=== PATIENT | female | born 1985 | race Caucasian/White ===

== ENCOUNTER 2016-12-10 13:30 | Outpatient (CLI) | payer OTHER | END 2016-12-10 13:31 | disposition home or self-care (01) | DX: L03.90 Cellulitis, unspecified (principal); L02.91 Cutaneous abscess, unspecified ==

== ENCOUNTER 2016-12-31 16:10 | Outpatient (CLI) | payer OTHER ==
--- NOTE | 2016-12-31 19:19 | XRAY Report ---
THREE-VIEW LEFT ELBOW: 12/31/2016 CLINICAL HISTORY: Left elbow pain. COMPARISON: None. FINDINGS: Soft tissue appears normal. Fat pad is not displaced. No fracture is seen. Joint space appears normal. IMPRESSION: NORMAL LEFT ELBOW. COMMENT: Dr. Mcmahon notified patient's healthcare provider, Rosa M Bhakta, of the normal findings on 12/31/2016 at 4:40 p.m. JOB #: [id number] EXT JOB #:[id number]
== END 2016-12-31 16:11 | disposition home or self-care (01) ==
LOC: DI.S 16:10
PROVIDERS: ATTEND Physician Assistant
DX: M25.522 Pain in left elbow (principal)

== ENCOUNTER 2017-07-02 12:12 | Outpatient (CLI) | payer OTHER | END 2017-07-02 12:13 | disposition short-term general hospital (02) | LOC: EMS 12:12 | PROVIDERS: ATTEND Surgery | DX: N64.4 Mastodynia (principal); V53.5XXA Driver of pick-up truck or van injured in collision with car, pick-up truck or van in traffic accident, initial encounter; Y92.414 Local residential or business street as the place of occurrence of the external cause | CPT/HCPCS: A0170; A0425; A0427 ==

== ENCOUNTER 2017-10-03 21:28 | Outpatient (CLI) | payer OTHER | END 2017-10-03 21:29 | disposition home or self-care (01) | LOC: LAB.R 21:28 | PROVIDERS: ATTEND Physician Assistant | DX: J02.9 Acute pharyngitis, unspecified (principal) | CPT/HCPCS: 87070 ==

== ENCOUNTER 2018-04-02 00:52 | Emergency (ER) | payer OTHER ==
[2018-04-02 01:31] LABS: BILIRUBIN,URINE NEGATIVE (NEGATIVE); GLUCOSE, URINE (UA) NEGATIVE (NEGATIVE); KETONES,URINE (UA) NEGATIVE (NEGATIVE); LEUKOCYTE ESTERASE, URINE TRACE (NEGATIVE); NITRITE,URINE NEGATIVE (NEGATIVE); OCCULT BLOOD,URINE LARGE (NEGATIVE); PROTEIN,URINE TRACE mg/dL (NEGATIVE); UROBILINOGEN,URINE 0.2 (NORMAL) E.U./dL (NORMAL)
[2018-04-02 01:33] LABS: CLARITY,URINE HAZY (CLEAR); HCG UR QUAL NEGATIVE
[2018-04-02 01:37] LABS: BACTERIA,URINE Few /HPF (None Seen); CRYSTALS,URINE 6-10 Calcium Oxalate /LPF; MUCUS,URINE Few Strands; SQUAMOUS EPITHELIAL CELL,UR MOD Squamous (<= Few)
[2018-04-02 03:27] LABS: BASOPHILS % (AUTO) 0.3 %; EOSINOPHILS # (AUTO) 0.1 10^3/uL (0.0-0.7); EOSINOPHILS % (AUTO) 1.5 %; HGB - HEMOGLOBIN 12.9 g/dL (12.0-16.0); LYMPHOCYTES # (AUTO) 1.8 10^3/uL (1.5-3.5); LYMPHOCYTES % (AUTO) 23.4 %; MEAN CORPUSCULAR HEMOGLOBIN 32.4 pg (27.0-31.0); MEAN CORPUSCULAR HGB CONC 35.1 g/dL (32.0-36.0); MEAN CORPUSCULAR VOLUME 92.2 fL (81.0-99.0); MEAN PLATELET VOLUME 7.3 fL (7.9-10.8); MONOCYTES # (AUTO) 0.5 10^3/uL (0.0-1.0); MONOCYTES % (AUTO) 6.7 %; NEUTROPHILS # (AUTO) 5.2 10^3/uL (1.5-6.6); NEUTROPHILS % (AUTO) 68.1 %; PLT - PLATELET COUNT 273 10^3/uL (130-450); RED BLOOD COUNT 3.98 10^6/uL (4.20-5.40); RED CELL DISTRIBUTION WIDTH 14.4 % (12.0-15.0); WHITE BLOOD COUNT 7.6 x10^3/uL (4.8-10.8)
--- NOTE | 2018-04-02 03:29 | Ultrasound Report ---
Procedure Date: 04/02/2018 Accession Number: [id number] / [id number] Procedure: US - Pelvic w/Transvag+Doppler Comp CPT Code: FULL RESULT: EXAM: PELVIC ULTRASOUND EXAM DATE: 04/02/2018 02:50 AM. CLINICAL HISTORY: Vaginal bleeding, pelvic pain. COMPARISON: None. TECHNIQUE: Realtime transabdominal pelvic scan performed to identify the uterus and adnexa and as an overview of other pelvic structures, followed by transvaginal scan to provide greater detail of the uterus and adnexa, with static image documentation. FINDINGS: Uterus: 7.5 x 3.9 x 5.4 cm, volume 82 cc. Anteverted position. Normal overall size and echotexture. Masses: Anterior subserosal fibroid measuring 2.2 x 1.4 x 2.2 cm. Endometrium: [address] Cervix: Unremarkable. Right Ovary: 3.2 x 2.2 x 2.3 cm, volume 8.2 cc. Normal echotexture and blood flow. Left Ovary: 4.0 x 2.6 x 3.0 cm, volume 16.3 cc. Cyst measuring 2.3 x 2.2 x 1.9 cm. Blood flow seen in the ovary. Free Fluid: None. Other: None. IMPRESSION: 1. Anterior 2 cm subserosal fibroid. 2. IUD in place. 3. Mildly prominent left ovary with 2 cm cyst. No torsion seen. RADIA
[2018-04-02 03:44] LABS: ALBUMIN 4.2 g/dL (3.2-5.5); ALBUMIN/GLOBULIN RATIO 1.6 (1.0-2.2); BILIRUBIN,TOTAL 0.6 mg/dL (0.2-1.0); CALCIUM 9.1 mg/dL (8.5-10.3); CREATININE 0.7 mg/dL (0.4-1.0); TOTAL PROTEIN 6.8 g/dL (6.7-8.2)
[2018-04-02 03:47] VITALS: BP 138/100
--- NOTE | 2018-04-02 03:47 | ED Physician Documentation ---
PD HPI FEMALE - Stated complaint Stated Complaint: FEMALE - Chief complaint Chief Complaint: Abd Pain - History obtained from History obtained from: Patient - History of Present Illness Timing - onset: Yesterday Timing - details: Gradual onset, Still present Associated symptoms: Pelvic pain, Urinary frequency Similar symptoms before: Has not had sx before Recently seen: Not recently seen - Additional information Additional information: Patient is a 32 year old female presenting to the emergency department for pelvic pain and vaginal bleeding. Patient states that the symptoms have been going on for the last few days. Review of Systems Ten Systems: 10 systems reviewed and negative Constitutional: denies: Fever, Chills GI: reports: Abdominal Pain : reports: Vaginal bleeding. 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 - Present Medications Home Medications: Ambulatory Orders Medication Instructions Recorded Confirmed No Known Home Medications [No 09/20/14 09/20/14 Known Home Medications] - Allergies Allergies/Adverse Reactions: Allergies Allergy/AdvReac Type Severity Reaction Status Date / Time amoxicillin AdvReac Intermediate Hives Verified 09/20/14 20:42 - Social History Does the pt smoke?: No Smoking Status: Never smoker Does the pt drink ETOH?: No Does the pt have substance abuse?: No - Immunizations Immunizations are current?: Yes - POLST Patient has POLST: No PD ED PE NORMAL - Vitals Vital signs reviewed: Yes - General General: Alert and oriented X 3 - HEENT HEENT: Atraumatic - Cardiac Cardiac: RRR - Respiratory Respiratory: No respiratory distress - Abdomen Abdomen: Soft, Non tender, Non distended - Rectal Rectal: Deferred - Derm Derm: Normal color - Neuro Neuro: Alert and oriented X 3, No motor deficit Eye Opening: Spontaneous Results - Vitals Vitals: Vital Signs - 24 hr 04/02/18 04/02/18 00:59 03:30 Temperature 36.1 C L 36.5 C Heart Rate 111 H 87 Respiratory 16 16 Rate Blood Pressure 142/104 H 138/100 H O2 Saturation 99 100 Oxygen O2 Source Room air - Labs Labs: Laboratory Tests 04/02/18 04/02/18 04/02/18 01:20 03:20 03:20 WBC 7.6 RBC 3.98 L Hgb 12.9 Hct 36.7 L MCV 92.2 MCH 32.4 H MCHC 35.1 RDW 14.4 Plt Count 273 MPV 7.3 L Neut # (Auto) 5.2 Lymph # (Auto) 1.8 Bureau # (Auto) 0.5 Eos # (Auto) 0.1 Baso # (Auto) 0.0 Absolute Nucleated RBC 0.00 Nucleated RBC % 0.0 Sodium 137 Potassium 3.3 L Chloride 103 Carbon Dioxide 27 Anion Gap 7.0 BUN 17 Creatinine 0.7 Estimated GFR (MDRD) 96 Glucose 100 Calcium 9.1 Total Bilirubin 0.6 AST 22 ALT 19 Alkaline Phosphatase 57 Total Protein 6.8 Albumin 4.2 Globulin 2.6 Albumin/Globulin Ratio 1.6 Lipase 25 Urine Color YELLOW Urine Clarity HAZY Urine pH 6.0 Ur Specific [place] 1.025 Urine Protein TRACE Urine Glucose (UA) NEGATIVE Urine Ketones NEGATIVE Urine Occult Blood LARGE H Urine Nitrite NEGATIVE Urine Bilirubin NEGATIVE Urine Urobilinogen 0.2 (NORMAL) Ur Leukocyte Esterase TRACE H Urine RBC 11-25 H Urine WBC 4-5 Ur Squamous Epith Cells MOD Squamous H Urine Crystals 6-10 Calcium Oxalate Urine Bacteria Few Urine Mucus Few Strands Ur Microscopic Review INDICATED Urine Culture Comments NOT INDICATED Urine HCG, Qual NEGATIVE - Rads (name of study) pelvic ultrasound Radiology: Final report received (consistent with uterine fibroids) PD MEDICAL DECISION MAKING - Sepsis Event Vital Signs: Vital Signs - 24 hr 04/02/18 04/02/18 00:59 03:30 Temperature 36.1 C L 36.5 C Heart Rate 111 H 87 Respiratory 16 16 Rate Blood Pressure 142/104 H 138/100 H O2 Saturation 99 100 Oxygen O2 Source Room air Departure - Departure Disposition: 01 Home, Self Care Clinical Impression: Uterine fibroid Condition: Stable Instructions: ED Fibroids Follow-Up: Rosa M Bhakta PA-C [Primary Care Provider] - Comments: Your symptoms today are being caused by fibroids. the firs step is to follow up with your doctor and possible start control. You can take motrin or tylenol as needed for pain. 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 Discharge Date/Time: 04/02/18 03:51
== END 2018-04-02 03:51 | disposition home or self-care (01) ==
LOC: ED 00:52
DX: D25.2 Subserosal leiomyoma of uterus (principal); N83.202 Unspecified ovarian cyst, left side; Z97.5 Presence of (intrauterine) contraceptive device
CPT/HCPCS: 36415; 76830; 76856; 80053; 81001; 81003; 81025; 83690; 85025; 87086; 93975; 99283

== ENCOUNTER 2018-04-09 14:28 | Emergency (ER) | payer OTHER ==
[2018-04-09 15:09] VITALS: BP 139/81
[2018-04-09 15:34] LABS: BASOPHILS % (AUTO) 0.5 %; EOSINOPHILS # (AUTO) 0.1 10^3/uL (0.0-0.7); EOSINOPHILS % (AUTO) 0.9 %; HGB - HEMOGLOBIN 14.1 g/dL (12.0-16.0); LYMPHOCYTES # (AUTO) 2.4 10^3/uL (1.5-3.5); LYMPHOCYTES % (AUTO) 28.1 %; MEAN CORPUSCULAR HEMOGLOBIN 32.2 pg (27.0-31.0); MEAN CORPUSCULAR HGB CONC 35.2 g/dL (32.0-36.0); MEAN CORPUSCULAR VOLUME 91.6 fL (81.0-99.0); MEAN PLATELET VOLUME 7.3 fL (7.9-10.8); MONOCYTES # (AUTO) 0.5 10^3/uL (0.0-1.0); MONOCYTES % (AUTO) 6.5 %; NEUTROPHILS # (AUTO) 5.4 10^3/uL (1.5-6.6); PLT - PLATELET COUNT 438 10^3/uL (130-450); RED BLOOD COUNT 4.38 10^6/uL (4.20-5.40); RED CELL DISTRIBUTION WIDTH 14.2 % (12.0-15.0); WHITE BLOOD COUNT 8.4 x10^3/uL (4.8-10.8)
[2018-04-09 15:48] LABS: ALBUMIN 4.4 g/dL (3.2-5.5); ALBUMIN/GLOBULIN RATIO 1.6 (1.0-2.2); BILIRUBIN,TOTAL 0.7 mg/dL (0.2-1.0); CREATININE 0.8 mg/dL (0.4-1.0); TOTAL PROTEIN 7.2 g/dL (6.7-8.2)
[2018-04-09 17:01] LABS: HCG,QUALITATIVE BLOOD NEGATIVE
== END 2018-04-09 16:24 | disposition left against medical advice (07) ==
LOC: ED 14:28
DX: Z53.21 Procedure and treatment not carried out due to patient leaving prior to being seen by health care provider (principal)
CPT/HCPCS: 36415; 80053; 83690; 84703; 85025

== ENCOUNTER 2018-04-16 15:46 | Emergency (ER) | payer OTHER ==
[2018-04-16] MEDS ORDERED: oxyCODONE/ACET 5/325 Prepack 4 PO STA (16:05)
--- NOTE | 2018-04-16 16:07 | ED Physician Documentation ---
PD HPI ABD PAIN - Stated complaint Stated Complaint: ABD PX - Chief complaint Chief Complaint: Abd Pain - History obtained from History obtained from: Patient - History of Present Illness Timing - onset: Other (32-year-old woman with history of cervical cancer and IUD in place presents with 3 months of vaginal bleeding and now a month worth of pelvic pain all day and every day. She was seen here a few days ago and ultrasound showing fibroids. She was not . She is taking Motrin but there is no significant relief in her pain. She has an appointment with gynecology in a couple of weeks.) Review of Systems Constitutional: denies: Fever, Chills GI: reports: Constipation. 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 - Present Medications Home Medications: Ambulatory Orders Medication Instructions Recorded Confirmed Norgestimate-Ethinyl Estradiol 1 each PO TID #1 packet 04/16/18 [Ortho Tri-Cyclen 28 Tablet] Oxycodone HCl/Acetaminophen 1 - 2 each PO Q6H PRN #20 tablet 04/16/18 [Percocet 5-325 mg Tablet] - Allergies Allergies/Adverse Reactions: Allergies Allergy/AdvReac Type Severity Reaction Status Date / Time amoxicillin AdvReac Intermediate Hives Verified 04/09/18 15:09 - Social History Does the pt smoke?: No Smoking Status: Never smoker Does the pt drink ETOH?: No Does the pt have substance abuse?: No - Immunizations Immunizations are current?: Yes - POLST Patient has POLST: No PD ED PE NORMAL - Vitals Vital signs reviewed: Yes - General General: Alert and oriented X 3, No acute distress - Abdomen Abdomen: Normal bowel sounds, Soft, Non tender - Neuro Neuro: Alert and oriented X 3, Normal speech - Psych Psych: Normal mood, Normal affect Results - Vitals Vitals: Vital Signs - 24 hr 04/16/18 15:48 Temperature 36.3 C L Heart Rate 100 Respiratory 16 Rate Blood Pressure 122/90 H O2 Saturation 99 Oxygen O2 Source Room air - Labs Labs: Laboratory Tests 04/16/18 04/16/18 16:15 16:44 Hgb 14.1 Hct 40.6 Urine Color LT. YELLOW Urine Clarity CLEAR Urine pH 7.0 Ur Specific [place] <=1.005 Urine Protein NEGATIVE Urine Glucose (UA) NEGATIVE Urine Ketones NEGATIVE Urine Occult Blood TRACE-LYSE Urine Nitrite NEGATIVE Urine Bilirubin NEGATIVE Urine Urobilinogen 0.2 (NORMAL) Ur Leukocyte Esterase NEGATIVE Ur Microscopic Review NOT INDICATED Urine Culture Comments NOT INDICATED Urine HCG, Qual NEGATIVE PD MEDICAL DECISION MAKING - ED course ED course: 32-year-old woman with one month worth of pelvic pain, fibroids on recent ultrasound and the remainder for recent workup was negative. She is referred to gynecology on painkillers and control. - Sepsis Event Vital Signs: Vital Signs - 24 hr 04/16/18 15:48 Temperature 36.3 C L Heart Rate 100 Respiratory 16 Rate Blood Pressure 122/90 H O2 Saturation 99 Oxygen O2 Source Room air Departure - Departure Disposition: 01 Home, Self Care Clinical Impression: Uterine fibroid Qualifiers: Uterine leiomyoma location: unspecified location Qualified Code(s): D25.9 - Leiomyoma of uterus, unspecified Condition: Good Instructions: ED Fibroids Follow-Up: [facility] [Provider Group] (as scheduled\ ) Prescriptions: Norgestimate-Ethinyl Estradiol [Ortho Tri-Cyclen 28 Tablet] 1 each PO TID #1 packet Oxycodone HCl/Acetaminophen [Percocet 5-325 mg Tablet] 1 - 2 each PO Q6H PRN # 20 tablet PRN Reason: pain Comments: You need to quit smoking while taking control, the risk of blood clots is increased using the combination. Do not drink or drive while taking narcotic pain medication. Note that many narcotic pain relievers also contain Tylenol/acetaminophen. Please ensure that your total dose of acetaminophen from all sources does not exceed 3 g (3000 mg) per day. You may get constipated while on this medication. Take a stool softener such as Colace twice a day while you are on it. Also add an [id number] laxative such as senna or MiraLAX on any day that you do not have a bowel movement. If you received a narcotic pain medication or sedative while in the emergency department, do not drive for the next 24 hours.
[2018-04-16] MEDS ORDERED: oxyCODONE 5 MG TABLET PO STA (16:23)
[2018-04-16 16:27] LABS: BILIRUBIN,URINE NEGATIVE (NEGATIVE); GLUCOSE, URINE (UA) NEGATIVE (NEGATIVE); KETONES,URINE (UA) NEGATIVE (NEGATIVE); LEUKOCYTE ESTERASE, URINE NEGATIVE (NEGATIVE); NITRITE,URINE NEGATIVE (NEGATIVE); OCCULT BLOOD,URINE TRACE-LYSE (NEGATIVE); PROTEIN,URINE NEGATIVE (NEGATIVE); UROBILINOGEN,URINE 0.2 (NORMAL) E.U./dL (NORMAL)
[2018-04-16 16:31] LABS: CLARITY,URINE CLEAR (CLEAR); HCG UR QUAL NEGATIVE
[2018-04-16 16:54] LABS: HGB - HEMOGLOBIN 14.1 g/dL (12.0-16.0)
[2018-04-16 17:21] VITALS: BP 122/88
== END 2018-04-16 17:21 | disposition home or self-care (01) ==
LOC: ED 15:46
DX: D25.9 Leiomyoma of uterus, unspecified (principal); Z85.41 Personal history of malignant neoplasm of cervix uteri; Z97.5 Presence of (intrauterine) contraceptive device
CPT/HCPCS: 36415; 81003; 81025; 85014; 85018; 99283; A9270; 81001; 87086

== ENCOUNTER 2018-06-18 12:45 | Emergency (ER) | payer OTHER ==
[2018-06-18 13:36] LABS: HCG UR QUAL NEGATIVE
[2018-06-18] MEDS ORDERED: IBUPROFEN 400 MG TABLET PO STA (13:52)
[2018-06-18] MEDS ORDERED: ACETAMINOPHEN 325 MG TABLET PO STA (13:52)
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
[2018-06-18 15:14] LABS: BILIRUBIN,URINE NEGATIVE (NEGATIVE); CLARITY,URINE CLEAR (CLEAR); GLUCOSE, URINE (UA) NEGATIVE (NEGATIVE); KETONES,URINE (UA) NEGATIVE (NEGATIVE); LEUKOCYTE ESTERASE, URINE NEGATIVE (NEGATIVE); NITRITE,URINE NEGATIVE (NEGATIVE); OCCULT BLOOD,URINE NEGATIVE (NEGATIVE); PROTEIN,URINE NEGATIVE (NEGATIVE); UROBILINOGEN,URINE 0.2 (NORMAL) E.U./dL (NORMAL)
[2018-06-18] MEDS ORDERED: oxyCODONE 5 MG TABLET PO STA (15:23)
[2018-06-18 15:35] VITALS: BP 112/78
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
== END 2018-06-18 15:34 | disposition home or self-care (01) ==
LOC: ED 12:45
DX: T74.11XA Adult physical abuse, confirmed, initial encounter (principal); S20.212A Contusion of left front wall of thorax, initial encounter; S70.212A Abrasion, left hip, initial encounter; L53.9 Erythematous condition, unspecified; Y04.8XXA Assault by other bodily force, initial encounter; Y07.03 Male partner, perpetrator of maltreatment and neglect
CPT/HCPCS: 71101; 76705; 81003; 81025; 99283; A9270; 81001; 87086

== ENCOUNTER 2018-07-09 08:00 | Outpatient (CLI) | payer OTHER | END 2018-07-09 23:59 | disposition home or self-care (01) | LOC: LAB.R 08:00 | PROVIDERS: ATTEND Nurse Practitioner | DX: L08.9 Local infection of the skin and subcutaneous tissue, unspecified (principal) | CPT/HCPCS: 87070; 87181; 87205 ==

== ENCOUNTER 2019-03-11 | Outpatient (CLI) | payer OTHER | END 2019-03-11 06:38 | disposition EMS.NT | DX: S61.218A Laceration without foreign body of other finger without damage to nail, initial encounter (principal); Y04.2XXA Assault by strike against or bumped into by another person, initial encounter ==

== ENCOUNTER 2019-07-04 08:50 | Emergency (ER) | payer MEDICAID, OTHER ==
[2019-07-04 09:05] VITALS: BP 147/108
[2019-07-04] MEDS ORDERED: BUPIVACAINE 0.5% PF 10 ML VIAL SUBQ STA (09:51)
[2019-07-04] MEDS ORDERED: TETANUS/DIPHTHERIA/PERTUSSIS 0.5 ML SYRINGE IM ONE (10:36)
--- NOTE | 2019-07-04 10:39 | ED Physician Documentation ---
PD HPI UPPER EXT INJURY - Stated complaint Stated Complaint: FINGER LAC - Chief complaint Chief Complaint: Laceration - History obtained from History obtained from: Patient, Family - History of Present Illness Location: Right, Finger (index) Where injury occurred: Home Timing - onset: Last night Timing - duration: Hours Timing - details: Abrupt onset, Still present Improved by: Rest, Immobilization Worsened by: Moving, Palpating Associated symptoms: No: Weakness, Numbness, Tingling, Swelling Similar symptoms before: Diagnosis (laceratioin) Recently seen: Not recently seen - Additonal information Additional information: 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 She is come in now for suturing. She is been able to control the bleeding with direct pressure. She has a lot of pain associated with this. Review of Systems Constitutional: denies: Fever Eyes: denies: Decreased vision Ears: denies: Ear pain Nose: denies: Congestion Throat: denies: Sore throat Cardiac: denies: Chest pain / pressure Respiratory: denies: Dyspnea, Cough GI: denies: Abdominal Pain, Nausea, Vomiting : denies: Dysuria, Frequency Skin: reports: Laceration (s). denies: Rash Musculoskeletal: reports: Extremity pain. 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 - Present Medications Home Medications: Ambulatory Orders Medication Instructions Recorded Confirmed Ibuprofen 400 mg ORAL ONCE 06/18/18 06/18/18 - Allergies Allergies/Adverse Reactions: Allergies Allergy/AdvReac Type Severity Reaction Status Date / Time amoxicillin AdvReac Intermediate Hives Verified 07/04/19 09:05 - Social History Does the pt smoke?: No Smoking Status: Never smoker Does the pt drink ETOH?: No Does the pt have substance abuse?: No - Immunizations Immunizations are current?: Yes - POLST Patient has POLST: No PD ED PE NORMAL - Vitals Vital signs reviewed: Yes (tachy and hypertensive ) - General General: Alert and oriented X 3, Well developed/nourished, Other (appears to be in pain ) - HEENT HEENT: Atraumatic, PERRL, EOMI - Neck Neck: Supple, no meningeal sign - Respiratory Respiratory: No respiratory distress - Derm Derm: Normal color, Warm and dry, No rash - Extremities Extremities: No deformity, Other (There is a 2.5cm laceration, a flap to the distal phlange ulnar surface of the right index. 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, No motor deficit, No sensory deficit, Normal speech Eye Opening: Spontaneous Motor: Obeys Commands Verbal: Oriented GCS Score: 15 - Psych Psych: Normal mood, Normal affect Results - Vitals Vitals: Vital Signs - 24 hr 07/04/19 09:01 Temperature 36.5 C Heart Rate 114 H Respiratory 14 Rate Blood Pressure 147/108 H O2 Saturation 100 Oxygen O2 Source Room air Procedures - Laceration (location) right index Length in cm: 2.5 Wound type: Curved, Flap Neurovascular status: Sensory intact, Motor intact, Vascular intact Anesthesia: Marcaine 0.5%, OTH (digital block) Wound Preparation: Hibiclens, Irrigated copiously NS, Wound explored, To the base Skin layer closure: Nylon, Interrupted, Size #-0 - enter number (4-0), Sutures - enter # (8) Other: Patient tolerated well, No complications, Neurovascular intact, Dressing applied, Tetanus booster given Complexity: Simple PD MEDICAL DECISION MAKING - ED course Complexity details: reviewed results, re-evaluated patient, considered differential, d/w patient, d/w family ED course: 33-year-old female with a laceration to her right index finger has a lot of pain associated with this she is given a digital block with release of her pain and her wound is cleansed and sutured.She does ask about pain medication repeatedly I have told her we will not be able to give her pain medication for this finger laceration. Departure - Departure Disposition: 01 Home, Self Care Clinical Impression: Laceration of index finger Condition: Stable Instructions: ED Laceration Hand Follow-Up: [facility] [Provider Group] Comments: sutures will need to be removed in 7-10 days Forms: Activity restrictions Discharge Date/Time: 07/04/19 10:55
== END 2019-07-04 10:55 | disposition home or self-care (01) ==
LOC: ED 08:50
DX: S61.210A Laceration without foreign body of right index finger without damage to nail, initial encounter (principal); W26.0XXA Contact with knife, initial encounter; Y93.G1 Activity, food preparation and clean up; Y92.009 Unspecified place in unspecified non-institutional (private) residence as the place of occurrence of the external cause; Z23 Encounter for immunization
CPT/HCPCS: 12001; 90471

== ENCOUNTER 2020-07-05 17:11 | Outpatient (CLI) | payer MEDICAID ==
[2020-07-05 19:59] LABS: BASOPHILS % (AUTO) 0.3 %; EOSINOPHILS # (AUTO) 0.1 10^3/uL (0.0-0.7); EOSINOPHILS % (AUTO) 1.2 %; LYMPHOCYTES # (AUTO) 2.7 10^3/uL (1.5-3.5); LYMPHOCYTES % (AUTO) 39.4 %; MEAN CORPUSCULAR HEMOGLOBIN 29.7 pg (27.0-31.0); MEAN CORPUSCULAR HGB CONC 33.7 g/dL (32.0-36.0); MEAN CORPUSCULAR VOLUME 88.1 fL (81.0-99.0); MEAN PLATELET VOLUME 9.7 fL (7.9-10.8); MONOCYTES # (AUTO) 0.4 10^3/uL (0.0-1.0); MONOCYTES % (AUTO) 5.6 %; NEUTROPHILS # (AUTO) 3.7 10^3/uL (1.5-6.6); NEUTROPHILS % (AUTO) 53.4 %; PLT - PLATELET COUNT 328 10^3/uL (130-450); RED BLOOD COUNT 4.72 10^6/uL (4.20-5.40); RED CELL DISTRIBUTION WIDTH 12.9 % (12.0-15.0)
== END 2020-07-05 17:12 | disposition home or self-care (01) ==
LOC: LAB.S 17:11
PROVIDERS: ATTEND Family Medicine
DX: N91.2 Amenorrhea, unspecified (principal)
CPT/HCPCS: 36415; 84702; 85025

== ENCOUNTER 2020-07-13 21:13 | Outpatient (CLI) | payer MEDICAID | END 2020-07-13 21:14 | disposition home or self-care (01) | LOC: COV 21:13 | PROVIDERS: ATTEND Family Medicine | DX: R05 Cough (principal); R06.02 Shortness of breath; R07.0 Pain in throat; M79.10 Myalgia, unspecified site; R53.83 Other fatigue; R68.83 Chills (without fever); R43.8 Other disturbances of smell and taste; R09.81 Nasal congestion; Z20.828 Contact with and (suspected) exposure to other viral communicable diseases; J34.89 Other specified disorders of nose and nasal sinuses ==

== ENCOUNTER 2020-11-02 20:31 | Emergency (ER) | payer MEDICAID ==
--- NOTE | 2020-11-02 21:28 | ED Physician Documentation ---
PD HPI FEMALE - Stated complaint Stated Complaint: ABD PX - Chief complaint Chief Complaint: Abd Pain - History obtained from History obtained from: Patient - History of Present Illness Timing - onset: How many days ago (4) Timing - duration: Days (4) Timing - details: Gradual onset, Still present, Waxing and waning Associated symptoms: Fever, Back pain, Dysuria, Urinary frequency Contributing factors: No: Similar symptoms before: Diagnosis (UTI) Recently seen: Not recently seen - Additional information Additional information: 35-year-old female who developed signs and symptoms of urinary tract infection about 4 days ago with urinary urgency and frequency and she began some [id number] medication. She has developed nausea vomiting and fever and left flank pain. She comes in now with 4 days of symptoms worsening. Review of Systems Constitutional: reports: Fever, Chills Eyes: denies: Decreased vision Ears: denies: Ear pain Nose: denies: Rhinorrhea / runny nose, Congestion Throat: denies: Sore throat Cardiac: denies: Chest pain / pressure, Palpitations Respiratory: denies: Dyspnea, Cough GI: reports: Abdominal Pain, Nausea, Vomiting : reports: Dysuria, Frequency Skin: denies: Rash Musculoskeletal: reports: Back pain. 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 - Present Medications Home Medications: Ambulatory Orders Medication Instructions Recorded Confirmed Ibuprofen 400 mg ORAL ONCE 06/18/18 06/18/18 Ondansetron Odt [Zofran] 4 mg TL Q6H PRN #10 tablet 11/02/20 Sulfamethox/Trimeth 800/160 1 tablet PO BID 7 Days #14 tablet 11/02/20 [Bactrim Ds] - Allergies Allergies/Adverse Reactions: Allergies Allergy/AdvReac Type Severity Reaction Status Date / Time amoxicillin AdvReac Intermediate Hives Verified 07/04/19 09:05 - Social History Does the pt smoke?: No Smoking Status: Never smoker Does the pt drink ETOH?: No Does the pt have substance abuse?: No - Immunizations Immunizations are current?: Yes - POLST Patient has POLST: No PD ED PE NORMAL - Vitals Vital signs reviewed: Yes (tachy and hypertensive ) - General General: Alert and oriented X 3, No acute distress, Well developed/nourished - HEENT HEENT: Atraumatic, PERRL, EOMI - Neck Neck: Supple, no meningeal sign - Cardiac Cardiac: RRR, No murmur - Respiratory Respiratory: No respiratory distress, Clear bilaterally - Abdomen Abdomen: Soft, Other (Left upper and lower quadrant tenderness is mild without garding. Localization is not consistent. ) - Back Back: No spinal TTP, Other (L CVA tenderenss) - Derm Derm: Normal color, Warm and dry, No rash - Extremities Extremities: No deformity, No edema - Neuro Neuro: Alert and oriented X 3, etcher apprentice photoengraving 2-12 intact, No motor deficit, No sensory deficit, Normal speech Eye Opening: Spontaneous Motor: Obeys Commands Verbal: Oriented GCS Score: 15 - Psych Psych: Normal mood, Normal affect Results - Vitals Vitals: Vital Signs - 24 hr 11/02/20 20:35 Temperature 36.4 C L Heart Rate 106 H Respiratory 16 Rate Blood Pressure 145/91 H O2 Saturation 100 Oxygen O2 Source Room air - Labs Labs: Laboratory Tests 11/02/20 11/02/20 11/02/20 21:41 21:41 22:42 WBC 5.5 RBC 3.96 L Hgb 12.0 Hct 35.1 L MCV 88.6 MCH 30.3 MCHC 34.2 RDW 12.4 Plt Count 240 MPV 9.3 Neut # (Auto) 3.4 Lymph # (Auto) 1.4 L [place] # (Auto) 0.5 Eos # (Auto) 0.1 Baso # (Auto) 0.0 Absolute Nucleated RBC 0.00 Nucleated RBC % 0.0 Sodium 136 Potassium 3.3 L Chloride 100 L Carbon Dioxide 26 Anion Gap 10.0 BUN 10 Creatinine 0.6 Estimated GFR (MDRD) 113 Glucose 108 H Calcium 9.4 Total Bilirubin 0.6 AST 18 ALT 20 Alkaline Phosphatase 64 Total Protein 6.8 Albumin 3.7 Globulin 3.1 Albumin/Globulin Ratio 1.2 Lipase 20 L Urine Color YELLOW Urine Clarity SL. CLOUDY Urine pH 7.0 Ur Specific [place] 1.020 Urine Protein TRACE Urine Glucose (UA) NEGATIVE Urine Ketones NEGATIVE Urine Occult Blood LARGE H Urine Nitrite POSITIVE H Urine Bilirubin NEGATIVE Urine Urobilinogen 1 (NORMAL) Ur Leukocyte Esterase SMALL H Urine RBC 11-25 H Urine WBC 6-10 H Ur Squamous Epith Cells RARE Squamous Urine Bacteria Moderate H Urine Mucus Moderate Strands Ur Microscopic Review INDICATED Urine Culture Comments INDICATED Urine HCG, Qual NEGATIVE Procedures - Bedside sono Bedside sono by EMP: With use of bedside ultrasound the left kidney is imaged there is no evidence of hydronephrosis it is sonographically tender. - IVC sono (time) 2124 Bedside IVC sono: IVC measures (cm) (0.79), IVC collapsed c insp (cm) (complete), Dehydration (est 2+ liter deficit) PD MEDICAL DECISION MAKING - ED course Complexity details: reviewed old records, reviewed results, re-evaluated patient, considered differential, d/w patient ED course: 35-year-old female with left flank pain urinary symptoms nausea vomiting is found to be dehydrated on interrogation the inferior vena cava and she has a sonographically tender left kidney. She is administered intravenous saline and a urine specimen is obtained. The urine specimen suggests infection and the patient is administered IV rocephin. Departure - Departure Disposition: 01 Home, Self Care Clinical Impression: Pyelonephritis, Hypokalemia, Dehydration Condition: Stable Instructions: ED Potassium Deficiency, ED Kidney Infec Female Follow-Up: Holley Muro ARNP [Primary Care Provider] - Prescriptions: Sulfamethox/Trimeth 800/160 [Bactrim Ds] 1 tablet PO BID 7 Days #14 tablet Ondansetron Odt [Zofran] 4 mg TL Q6H PRN #10 tablet PRN Reason: Nausea / Vomiting
[2020-11-02] MEDS ORDERED: SODIUM CHLORIDE 0.9% 1,000 ML IV STA ×2 (21:30→22:47)
[2020-11-02 21:46] LABS: BASOPHILS % (AUTO) 0.4 %; EOSINOPHILS # (AUTO) 0.1 10^3/uL (0.0-0.7); EOSINOPHILS % (AUTO) 2.6 %; HCT - HEMATOCRIT 35.1 % (37.0-47.0); LYMPHOCYTES # (AUTO) 1.4 10^3/uL (1.5-3.5); LYMPHOCYTES % (AUTO) 25.5 %; MEAN CORPUSCULAR HEMOGLOBIN 30.3 pg (27.0-31.0); MEAN CORPUSCULAR HGB CONC 34.2 g/dL (32.0-36.0); MEAN CORPUSCULAR VOLUME 88.6 fL (81.0-99.0); MEAN PLATELET VOLUME 9.3 fL (7.9-10.8); MONOCYTES # (AUTO) 0.5 10^3/uL (0.0-1.0); MONOCYTES % (AUTO) 9.9 %; NEUTROPHILS # (AUTO) 3.4 10^3/uL (1.5-6.6); NEUTROPHILS % (AUTO) 61.4 %; PLT - PLATELET COUNT 240 10^3/uL (130-450); RED BLOOD COUNT 3.96 10^6/uL (4.20-5.40); RED CELL DISTRIBUTION WIDTH 12.4 % (12.0-15.0); WHITE BLOOD COUNT 5.5 x10^3/uL (4.8-10.8)
[2020-11-02 22:00] LABS: ALBUMIN 3.7 g/dL (3.2-5.5); ALBUMIN/GLOBULIN RATIO 1.2 (1.0-2.2); BILIRUBIN,TOTAL 0.6 mg/dL (0.2-1.0); CALCIUM 9.4 mg/dL (8.5-10.3); CREATININE 0.6 mg/dL (0.4-1.0); POTASSIUM 3.3 mmol/L (3.5-5.0); TOTAL PROTEIN 6.8 g/dL (6.7-8.2)
[2020-11-02 22:46] LABS: BILIRUBIN,URINE NEGATIVE (NEGATIVE); GLUCOSE, URINE (UA) NEGATIVE (NEGATIVE); KETONES,URINE (UA) NEGATIVE (NEGATIVE); LEUKOCYTE ESTERASE, URINE SMALL (NEGATIVE); NITRITE,URINE POSITIVE (NEGATIVE); OCCULT BLOOD,URINE LARGE (NEGATIVE); PROTEIN,URINE TRACE mg/dL (NEGATIVE); UROBILINOGEN,URINE 1 (NORMAL) E.U./dL (NORMAL)
[2020-11-02] MEDS ORDERED: POTASSIUM CHLOR 10 MEQ/100 ML 10 MEQ/100 ML BAG IV ONE (22:46)
[2020-11-02 22:47] LABS: CLARITY,URINE SL. CLOUDY (CLEAR); HCG UR QUAL NEGATIVE
[2020-11-02 22:51] LABS: BACTERIA,URINE Moderate /HPF (None Seen); MUCUS,URINE Moderate Strands; SQUAMOUS EPITHELIAL CELL,UR RARE Squamous (<= Few)
[2020-11-02] MEDS ORDERED: cefTRIAXone 1 GM in SODIUM CHLORIDE 0.9% MINIBAG 100 ML IV STA (22:55)
[2020-11-02] MEDS ORDERED: POTASSIUM CITRATE 5 MEQ TABLET PO STA (23:01)
[2020-11-02] MEDS ORDERED: cefTRIAXone 1 GM VIAL ONE (23:36)
[2020-11-02 23:42] VITALS: BP 138/84
== END 2020-11-02 23:42 | disposition home or self-care (01) ==
LOC: ED 20:31
DX: N12 Tubulo-interstitial nephritis, not specified as acute or chronic (principal); E87.6 Hypokalemia; E86.0 Dehydration
CPT/HCPCS: 36415; 80053; 81001; 81025; 83690; 85025; 87077; 87086; 87181; 96361; 96374; 99284; A9270; 81003

== ENCOUNTER → 2021-02-13 | Outpatient (CLI) | payer MEDICAID | LOC: LAB.S 08:00 | PROVIDERS: ATTEND Physician Assistant | DX: L03.211 Cellulitis of face (principal) | CPT/HCPCS: 87070; 87181; 87205 ==

== ENCOUNTER 2021-02-16 16:09 | Emergency (ER) | payer MEDICAID ==
--- NOTE | 2021-02-16 20:57 | ED Physician Documentation ---
PD HPI SKIN - Stated complaint Stated Complaint: FACIAL SWELLING - Chief complaint Chief Complaint: Wound - History obtained from History obtained from: Patient - Additional information Additional information: 35-year-old woman has a facial lesion. It was cultured in the clinic 3 days ago. It grew out MRSA. It was resistant to Bactrim oxacillin penicillin levofloxacin erythromycin and Cipro. It was sensitive to clindamycin, rifampin, tetracycline, tigecycline. Despite being on doxycycline for a few days it has worsened. No fevers. 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 - Present Medications Home Medications: Ambulatory Orders Medication Instructions Recorded Confirmed HYDROcod/ACETAM 5/325 [[place] 5/325] 1 - 2 tab PO Q6H PRN #10 tablet 02/16/21 rifAMPin [Rifampin] 300 mg PO BID #20 02/16/21 - Allergies Allergies/Adverse Reactions: Allergies Allergy/AdvReac Type Severity Reaction Status Date / Time amoxicillin AdvReac Intermediate Hives Verified 02/16/21 16:26 - Social History Does the pt smoke?: No Smoking Status: Never smoker Does the pt drink ETOH?: No Does the pt have substance abuse?: No - Immunizations Immunizations are current?: Yes - POLST Patient has POLST: No PD ED PE NORMAL - Vitals Vital signs reviewed: Yes - General General: Alert and oriented X 3, No acute distress - HEENT HEENT: Other (She has an abscess over the right mandible. Bedside ultrasound does show about a 1 cm fluid collection.) - Neck Neck: Supple, no meningeal sign, No bony TTP - Neuro Neuro: Alert and oriented X 3, Normal speech - Psych Psych: Normal mood, Normal affect Results - Vitals Vitals: Vital Signs - 24 hr 02/16/21 02/16/21 02/16/21 16:27 20:40 21:41 Temperature 37.0 C 36.8 C 36.7 C Heart Rate 100 106 H 93 Respiratory 19 18 16 Rate Blood Pressure 149/78 H 143/90 H 142/88 H O2 Saturation 100 100 100 Oxygen O2 Source Room air Procedures - Laceration (location) R face Other: Other - Abscess I&D (location) R face Preparation: Alcohol, Lidocaine 1% Incision: Incised with scalpel, Purulent drainage, Loculations broken. No: Culture obtained Other: Pt tolerated well, Dressing applied Departure - Departure Disposition: 01 Home, Self Care Clinical Impression: Abscess Condition: Good Record reviewed to determine appropriate education?: Yes Instructions: ED Abscess IandD Prescriptions: HYDROcod/ACETAM 5/325 [[place] 5/325] 1 - 2 tab PO Q6H PRN #10 tablet PRN Reason: Pain rifAMPin [Rifampin] 300 mg PO BID #20 Comments: Continue the doxycycline, we are adding a second antibiotic, rifampin to this. If not improving over the next couple of days or anytime if worsening please return for reevaluation. Follow-up with your primary care physician in 3 to 5 days for recheck. No other I am prescribing a short course of narcotic pain medication for you. These are potentially dangerous and addictive medications that should be used carefully. These medications may constipate you. Take an fmgd-oti-adyxrhb stool softener (docusate) twice daily with plenty of water while taking these medications. If you go 24 hours without a bowel movement, take savd-lqg-xrqyivl miralax, per package instructions. Do not drink or drive while taking these medications. If you received narcotic or sedating medications while in the emergency department, do not drive for 24 hours. Store this medication in a safe, secure place and out of reach of children. It is a violation of federal law to give or sell this medication to another person or to use in a manner other than prescribed. The ED will not refill narcotic prescriptions, including prescriptions lost or stolen. To dispose of unwanted medications: 1. [facility] at [address] in [place] has a medication drop box. They accept prescription medications (in pill form) Friday through Friday 9:00 a.m. to 5:00 p.m. 2. The [facility] [employer] [facility] accepts prescription medications (in pill form only) for disposal year round. Call for more information. 3. Contact the [facility] for the next [facility] sponsored prescription drug collection event. , [phone], or [phone]; Note that many narcotic pain relievers also contain Tylenol/acetaminophen. Please ensure that your total dose of acetaminophen from all sources does not exceed 3 g (3000 mg) per day. Forms: Activity restrictions Discharge Date/Time: 02/16/21 21:40
[2021-02-16] MEDS ORDERED: HYDROcod/ACETAM 5/325 MG TABLET PO STA (21:02)
[2021-02-16] MEDS ORDERED: HYDROcod/ACET 5/325 Prepack 4 PO STA (21:02)
[2021-02-16] MEDS ORDERED: BUFFERED LIDOCAINE 10 ML SYRINGE SUBQ STA (21:02)
[2021-02-16] MEDS ORDERED: DOXEPIN 10 MG CAPSULE PO STA (21:02)
[2021-02-16] MEDS ORDERED: rifAMPin 150 MG CAPSULE PO STA (21:03)
[2021-02-16 21:43] VITALS: BP 142/88
== END 2021-02-16 21:40 | disposition home or self-care (01) ==
LOC: ED 16:09
DX: L02.01 Cutaneous abscess of face (principal); B95.62 Methicillin resistant Staphylococcus aureus infection as the cause of diseases classified elsewhere; Z16.24 Resistance to multiple antibiotics
CPT/HCPCS: 10060; 99282; 99283; A9270

== ENCOUNTER 2021-04-18 18:08 | Outpatient (CLI) | payer MEDICAID | END 2021-04-18 18:09 | disposition EMS.NT | LOC: EMS 18:08 | DX: R07.9 Chest pain, unspecified (principal); R06.4 Hyperventilation; R20.0 Anesthesia of skin ==

== ENCOUNTER 2021-04-27 10:39 | Outpatient (CLI) | payer MEDICAID | END 2021-04-27 23:59 | disposition short-term general hospital (02) | LOC: EMS 10:39 | DX: K62.5 Hemorrhage of anus and rectum (principal); R10.32 Left lower quadrant pain; R10.12 Left upper quadrant pain; R10.11 Right upper quadrant pain | CPT/HCPCS: A0425; A0427; A0999 ==

== ENCOUNTER 2021-07-03 08:00 | Outpatient (CLI) | payer MEDICAID ==
--- NOTE | 2021-07-03 20:43 | XRAY Report ---
PROCEDURE: Cervical Spine 2 View INDICATIONS: NECK STRAIN TECHNIQUE: 3 view(s) of the cervical spine were acquired. COMPARISON: None. FINDINGS: Bones: No fractures or dislocations to the C7-T1 level. The lateral masses of C1 appear intact on t he odontoid view. No suspicious bony lesions. There is reversal of cervical curvature. There is tra ce anterolisthesis of C4 on C5, trace retrolisthesis of C5 on C6. Severe disc space narrowing is pres ent at C5-6, C6-7 with anterior osteophytes. Multilevel uncovertebral hypertrophy is present. Soft tissues: No prevertebral soft tissue swelling. IMPRESSION: Reversal cervical curvature and degenerative changes most prominent at C5-6 and C6-7. Reviewed by: Luana Smith MD on 07/03/2021 8:41 PM PST Approved by: Luana Smith MD on 07/03/2021 8:41 PM PST Station ID: [id number]
== END 2021-07-03 23:59 | disposition home or self-care (01) ==
LOC: DI.S 08:00
PROVIDERS: ATTEND Emergency Medicine
DX: M47.812 Spondylosis without myelopathy or radiculopathy, cervical region (principal)

== ENCOUNTER 2021-07-13 19:16 | Outpatient (CLI) | payer MEDICAID | END 2021-07-13 19:17 | disposition critical access hospital (66) | LOC: EMS 19:16 | DX: R40.0 Somnolence (principal); R11.0 Nausea; T65.91XA Toxic effect of unspecified substance, accidental (unintentional), initial encounter; Y92.008 Other place in unspecified non-institutional (private) residence as the place of occurrence of the external cause | CPT/HCPCS: A0425; A0427; A0999 ==

== ENCOUNTER 2021-07-13 19:51 | Emergency (ER) | payer MEDICAID ==
--- NOTE | 2021-07-13 20:04 | ED Physician Documentation ---
History of Present Illness - Stated complaint Stated Complaint: OD - Additonal information Additional information: 35-year-old female is brought to the emergency department for evaluation after accidental overdose. At approximately 6:30 PM she smoked what she believed to be a 30 mg Percocet pill. However shortly after smoking it she began to feel excessively sleepy. Her parents found her in the garage upright though her head was bobbing. They did give her 2 doses of intranasal Narcan and summoned EMS. When EMS arrived she was fully alert. The same pill that the patient smoked this evening was the same package of pills that her close friend and partner for nearly 20 years smoked last week and after smoking. Patient states that she was not intending to harm her self though she suspected that it could have been laced with fentanyl. She had 2 years of sobriety until today. pt states that she is very upset after the passing of her friend. They lived together and they had had a large argument the night before she dies which they had not been able to resolve. Review of Systems Constitutional: denies: Fever, Chills Eyes: reports: Reviewed and negative Nose: reports: Reviewed and negative Throat: reports: Reviewed and negative Cardiac: reports: Reviewed and negative Respiratory: reports: Reviewed and negative GI: reports: Reviewed and negative : reports: Reviewed and negative Skin: reports: Reviewed and negative Musculoskeletal: reports: Reviewed and negative Neurologic: reports: Reviewed and negative Psychiatric: reports: Depressed. 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 - Present Medications Home Medications: Ambulatory Orders Medication Instructions Recorded Confirmed Naloxone HCl [Narcan] 4 mg NS PRN PRN #2 unit 07/13/21 - Allergies Allergies/Adverse Reactions: Allergies Allergy/AdvReac Type Severity Reaction Status Date / Time amoxicillin AdvReac Intermediate Hives Verified 02/16/21 16:26 - Social History Does the pt smoke?: No Smoking Status: Never smoker Does the pt drink ETOH?: No Does the pt have substance abuse?: No - Immunizations Immunizations are current?: Yes - POLST Patient has POLST: No PD ED PE EXPANDED - General General: Alert, No acute distress - Cardiac Cardiac: Regular Rate, Radial strong equal, Pedal strong equal, Cap refill < 2 sec - Respiratory Respiratory: Clear to ausultation [place]. No: Distress, Labored - Abdomen Abdomen: Normal Bowel sounds. No: Tender to palpation - Derm Derm: Normal color, Warm and dry. No: Rash - Extremities Extremities: Normal. No: Deformity, Tenderness - Neuro Neuro: Alert and Oriented X 3, CNII-XII intact, Normal speech - GCS Eye Opening: Spontaneous Motor: Obeys Commands Verbal: Oriented Total: 15 Results - Vitals Vitals: Vital Signs - 24 hr 07/13/21 07/13/21 20:00 21:14 Temperature 36.3 C L Heart Rate 94 89 Respiratory 14 18 Rate Blood Pressure 146/108 H 131/86 H O2 Saturation 100 99 Oxygen O2 Source Room air - EKG (time done) 2010 Rate: Rate (enter#) (86) Rhythm: NSR [place]: Normal Intervals: Normal AK QRS: Normal Ischemia: Normal ST segments Compare to prior EKG: Old EKG unavailable Computer interpretation: Agree with computer - Labs Labs: Laboratory Tests 07/13/21 07/13/21 07/13/21 20:08 20:08 20:08 WBC 5.1 RBC 4.52 Hgb 13.9 Hct 39.9 MCV 88.3 MCH 30.8 MCHC 34.8 RDW 13.4 Plt Count 319 MPV 8.7 Neut # (Auto) 3.2 Lymph # (Auto) 1.4 L [place] # (Auto) 0.4 Eos # (Auto) 0.1 Baso # (Auto) 0.0 Absolute Nucleated RBC 0.00 Nucleated RBC % 0.0 Sodium 135 Potassium 3.4 L Chloride 98 L Carbon Dioxide 29 Anion Gap 8.0 BUN 16 Creatinine 1.0 Estimated GFR (MDRD) 63 L Glucose 104 H Calcium 9.1 Total Bilirubin 0.7 AST 19 ALT 20 Alkaline Phosphatase 70 Total Protein 7.3 Albumin 4.4 Globulin 2.9 Albumin/Globulin Ratio 1.5 Lipase 27 TSH 1.62 Urine HCG, Qual Salicylates < 6.0 Acetaminophen < 10 L Ethyl Alcohol < 5.0 07/13/21 20:47 WBC RBC Hgb Hct MCV MCH MCHC RDW Plt Count MPV Neut # (Auto) Lymph # (Auto) [place] # (Auto) Eos # (Auto) Baso # (Auto) Absolute Nucleated RBC Nucleated RBC % Sodium Potassium Chloride Carbon Dioxide Anion Gap BUN Creatinine Estimated GFR (MDRD) Glucose Calcium Total Bilirubin AST ALT Alkaline Phosphatase Total Protein Albumin Globulin Albumin/Globulin Ratio Lipase TSH Urine HCG, Qual NEGATIVE Salicylates Acetaminophen Ethyl Alcohol - Rads (name of study) cxr Radiology: Final report received (no evidence of acute pulmonary process) PD MEDICAL DECISION MAKING - ED course Complexity details: reviewed results, re-evaluated patient, considered differential, d/w patient ED course: 35-year-old female presents emergency department for evaluation via EMS after an accidental overdose. She was smoking what she believed to be Percocet however it made her excessively drowsy. Her parents gave her 2 doses of intranasal Narcan at approximately 630 this evening or 3 hours ago. Unfortunately this is the same medication that her partner smoked last week that resulted in her untimely . Patient is quite adamant with this provider that she does not wish to harm herself. She had 2 years of sobriety until the event tonight. While here in the emergency department she has been very alert with unlabored normal respirations. I have asked the patient to stay a little longer for observation given that it has been just only 3 hours since her last Narcan administration but she is quite adamant that she is safe for discharge home. She is going to return to her parents house with her children. She contracts for safety. She had 2 years of sobriety until today and stated that she is speaking with her ex- who is working to get her connected to outpatient therapy to discuss the loss of her friend. A prescription for intranasal Narcan has been sent to the [facility] drug in [place] Departure - Departure Disposition: 01 Home, Self Care Clinical Impression: Accidental overdose Qualifiers: Encounter type: initial encounter Qualified Code(s): T50.901A - Poisoning by unspecified drugs, medicaments and biological substances, accidental (unintentional), initial encounter Condition: Stable Record reviewed to determine appropriate education?: Yes Instructions: ED Overdose Accidental Prescriptions: Naloxone HCl [Narcan] 4 mg NS PRN PRN #2 unit PRN Reason: As Needed Per Provider Orders Comments: Jacquelin rico were seen in the emergency department today after you accidentally overdosed at home. You suspected that the Percocet you were going to smoke was laced with fentanyl. Your parents gave you 2 doses of intranasal Narcan. I have encouraged you to stay so that we could observe you further however you wish to be discharged at this time. I think it is important that you continue to follow through with counseling to discuss loss of your friend. If at any point you ever feel unsafe, have thoughts of self-harm to your self or would like to speak with the child protective services social worker to discuss rehab please do not hesitate to return immediately to the emergency department. I am sending a prescription for some Narcan to the [facility] drug in [place]. You can fill this prescription tomorrow.
--- NOTE | 2021-07-13 20:21 | XRAY Report ---
PROCEDURE: Chest 1 View X-Ray INDICATIONS: OD TECHNIQUE: One view of the chest was acquired. COMPARISON: None FINDINGS: Surgical changes and devices: None. Lungs and pleura: No pleural effusions or pneumothorax. Lungs are clear. Mediastinum: Mediastinal contours appear normal. Heart size is normal. Bones and chest wall: No suspicious bony lesions. Overlying soft tissues appear unremarkable. IMPRESSION: No evidence acute pulmonary process. Reviewed by: Timo Sams MD on 07/13/2021 8:20 PM RUST Approved by: Timo Sams MD on 07/13/2021 8:20 PM RUST Station ID: [id number]
[2021-07-13 20:24] LABS: BASOPHILS % (AUTO) 0.4 %; EOSINOPHILS # (AUTO) 0.1 10^3/uL (0.0-0.7); HCT - HEMATOCRIT 39.9 % (37.0-47.0); HGB - HEMOGLOBIN 13.9 g/dL (12.0-16.0); LYMPHOCYTES # (AUTO) 1.4 10^3/uL (1.5-3.5); LYMPHOCYTES % (AUTO) 26.6 %; MEAN CORPUSCULAR HEMOGLOBIN 30.8 pg (27.0-31.0); MEAN CORPUSCULAR HGB CONC 34.8 g/dL (32.0-36.0); MEAN CORPUSCULAR VOLUME 88.3 fL (81.0-99.0); MEAN PLATELET VOLUME 8.7 fL (7.9-10.8); MONOCYTES # (AUTO) 0.4 10^3/uL (0.0-1.0); MONOCYTES % (AUTO) 8.7 %; NEUTROPHILS # (AUTO) 3.2 10^3/uL (1.5-6.6); NEUTROPHILS % (AUTO) 63.3 %; PLT - PLATELET COUNT 319 10^3/uL (130-450); RED BLOOD COUNT 4.52 10^6/uL (4.20-5.40); RED CELL DISTRIBUTION WIDTH 13.4 % (12.0-15.0); WHITE BLOOD COUNT 5.1 x10^3/uL (4.8-10.8)
[2021-07-13 20:27] LABS: ACETAMINOPHEN < 10 ug/mL (10-30); ALBUMIN 4.4 g/dL (3.2-5.5); ALBUMIN/GLOBULIN RATIO 1.5 (1.0-2.2); ALKALINE PHOSPHATASE 70 IU/L (42-121); ALT ALANINE AMINOTRANSFERASE 20 IU/L (10-60); AST ASPARTATE AMINOTRANSFERASE 19 IU/L (10-42); BILIRUBIN,TOTAL 0.7 mg/dL (0.2-1.0); BUN - BLOOD UREA NITROGEN 16 mg/dL (6-20); CALCIUM 9.1 mg/dL (8.5-10.3); CARBON DIOXIDE - CO2 29 mmol/L (21-32); CHLORIDE 98 mmol/L (101-111); ETOH - ETHANOL < 5.0 mg/dL; GFR - MDRD 63 (>89); GLUCOSE 104 mg/dL (70-100); LIPASE 27 U/L (22-51); POTASSIUM 3.4 mmol/L (3.5-5.0); SALICYLATE < 6.0 mg/dL; SODIUM 135 mmol/L (135-145); TOTAL PROTEIN 7.3 g/dL (6.7-8.2)
[2021-07-13 21:07] LABS: MUDS CUTOFF CONCENTRATIONS CUTOFF CONC BELOW:
[2021-07-13 21:12] LABS: HCG UR QUAL NEGATIVE
[2021-07-13 21:15] VITALS: BP 131/86
[2021-07-13 21:18] LABS: COCAINE SCREEN URINE NEGATIVE (NEGATIVE); THC CANNABINOID SCREEN, URINE NEGATIVE (NEGATIVE)
[2021-07-13 21:19] LABS: AMPHETAMINE SCREEN,URINE POSITIVE (NEGATIVE); BARBITURATE SCREEN,UR NEGATIVE (NEGATIVE); BENZODIAZEPINES SCREEN, URINE NEGATIVE (NEGATIVE); METHADONE SCREEN, URINE NEGATIVE (NEGATIVE); METHAMPHETAMINES SCREEN, URINE POSITIVE (NEGATIVE); OPIATE SCREEN, URINE NEGATIVE (NEGATIVE); OXYCODONE SCREEN, URINE NEGATIVE (NEGATIVE); PROPOXYPHENE SCREEN, URINE NEGATIVE (NEGATIVE); TRICYCLIC ANTIDEPRESSANT,URINE NEGATIVE (NEGATIVE)
== END 2021-07-13 21:31 | disposition home or self-care (01) ==
LOC: EDUNIT# → ED 19:51
DX: T50.901A Poisoning by unspecified drugs, medicaments and biological substances, accidental (unintentional), initial encounter (principal)
CPT/HCPCS: 36415; 80053; 80306; 80307; 80320; 80329; 81001; 81003; 81025; 83690; 84443; 85025; 87086; 93005; 99283; 99284

== ENCOUNTER 2021-07-26 18:59 | Outpatient (CLI) | payer MEDICAID | END 2021-07-26 19:00 | disposition EMS.NT | LOC: EMS 18:59 | DX: Z03.89 Encounter for observation for other suspected diseases and conditions ruled out (principal) ==

== ENCOUNTER 2021-07-27 15:45 | Outpatient (CLI) | payer MEDICAID ==
[2021-07-27 21:12] LABS: BILIRUBIN,URINE NEGATIVE (NEGATIVE); GLUCOSE, URINE (UA) NEGATIVE (NEGATIVE); KETONES,URINE (UA) TRACE mg/dL (NEGATIVE); LEUKOCYTE ESTERASE, URINE SMALL (NEGATIVE); NITRITE,URINE NEGATIVE (NEGATIVE); OCCULT BLOOD,URINE SMALL (NEGATIVE); PROTEIN,URINE TRACE mg/dL (NEGATIVE); UROBILINOGEN,URINE 0.2 (NORMAL) E.U./dL (NORMAL)
[2021-07-27 21:19] LABS: BACTERIA,URINE Many /HPF (None Seen); CLARITY,URINE HAZY (CLEAR); SQUAMOUS EPITHELIAL CELL,UR MANY Squamous (<= Few); WBC,URINE >25 /HPF (0-5)
== END 2021-07-27 23:59 | disposition home or self-care (01) ==
LOC: LAB.S 15:45
PROVIDERS: ATTEND Emergency Medicine
DX: N30.01 Acute cystitis with hematuria (principal); R30.0 Dysuria
CPT/HCPCS: 81001

== ENCOUNTER 2021-07-28 15:30 | Outpatient (CLI) | payer MEDICAID | END 2021-07-28 23:59 | disposition home or self-care (01) | LOC: LAB 15:30 | PROVIDERS: ATTEND Emergency Medicine | DX: L02.411 Cutaneous abscess of right axilla (principal) | CPT/HCPCS: 87070; 87181; 87205 ==

== ENCOUNTER 2021-10-26 14:18 | Outpatient (CLI) | payer OTHER ==
[2021-10-26 15:16] LABS: HCG,QUALITATIVE BLOOD NEGATIVE
== END 2021-10-26 14:19 | disposition home or self-care (01) ==
LOC: LAB.R 14:18
PROVIDERS: ATTEND Registered Nurse
DX: O02.81 Inappropriate change in quantitative human chorionic gonadotropin (hCG) in early pregnancy (principal)
CPT/HCPCS: 84703

== ENCOUNTER 2022-03-02 16:12 | Emergency (ER) | payer MEDICAID ==
[2022-03-02] MEDS ORDERED: HYDROcod/ACETAM 5/325 MG TABLET PO STA (16:31)
[2022-03-02] MEDS ORDERED: LIDOCAINE 1%-EPI 1:100000 20 ML MDV SUBQ STA (16:31)
--- NOTE | 2022-03-02 16:32 | ED Physician Documentation ---
PD HPI WOUND RECHECK - Stated complaint Stated Complaint: WOUND ON CHEEK - Chief complaint Chief Complaint: Wound - Histroy obtained from History obtained from: Patient - Additional information Additional information: 36-year-old woman with history of methamphetamine abuse in remission got out of custodial a few days ago. States that the day prior to getting out of custodial she was bitten by a spider and she has a wound on her face. She also notes body wide swelling going on over the same timeframe. No fevers. No urinary complaints. She does not have any wounds other than the one on her right cheek. She has a history of MRSA. 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: section - Present Medications Home Medications: Ambulatory Orders Medication Instructions Recorded Confirmed Furosemide [Lasix] 20 mg PO DAILY #7 tablet 03/02/22 HYDROcod/ACETAM 5/325 [[place] 5/325] 1 - 2 tab PO Q6H PRN #15 tablet 03/02/22 Potassium Chloride 20 meq PO DAILY #7 tab 03/02/22 QUEtiapine [SEROquel] 75 mg 03/02/22 Sertraline HCl [Zoloft] 150 mg PO 03/02/22 clindamycin HCL [Cleocin HCl] 300 mg PO QID #28 cap 03/02/22 cloBAZam [Clobazam] 100 mg 03/02/22 - Allergies Allergies/Adverse Reactions: Allergies Allergy/AdvReac Type Severity Reaction Status Date / Time amoxicillin AdvReac Intermediate Hives Verified 03/02/22 16:22 - Social History Does the pt smoke?: No Smoking Status: Never smoker Does the pt drink ETOH?: No Does the pt have substance abuse?: No - Immunizations Immunizations are current?: Yes - POLST Patient has POLST: No PD ED PE NORMAL - Vitals Vital signs reviewed: Yes - General General: Alert and oriented X 3, No acute distress - HEENT HEENT: PERRL, EOMI, Other (There is a boil that looks drained on the right cheek with mild surrounding cellulitis and no facial swelling.) - Neck Neck: Supple, no meningeal sign, No bony TTP - Derm Derm: Normal color, Warm and dry - Extremities Extremities: Other (1-2+ pitting pedal edema symmetric.) - Neuro Neuro: Alert and oriented X 3, Normal speech - Psych Psych: Normal mood, Normal affect Results - Vitals Vitals: Vital Signs - 24 hr 03/02/22 03/02/22 16:16 17:33 Temperature 36.3 C L 37.2 C Heart Rate 126 H 113 H Respiratory 18 18 Rate Blood Pressure 144/77 H 146/87 H O2 Saturation 98 95 Oxygen O2 Source Room air - Labs Labs: Microbiology 03/02/22 16:41 Wound Culture - Preliminary Abscess Laboratory Tests 03/02/22 03/02/22 16:45 16:45 WBC 7.7 RBC 3.39 L Hgb 10.7 L Hct 30.6 L MCV 90.3 MCH 31.6 H MCHC 35.0 RDW 13.3 Plt Count 261 MPV 9.1 Neut # (Auto) 4.8 Lymph # (Auto) 1.9 [place] # (Auto) 0.7 Eos # (Auto) 0.2 Baso # (Auto) 0.0 Absolute Nucleated RBC 0.00 Nucleated RBC % 0.0 Sodium 138 Potassium 3.2 L Chloride 100 L Carbon Dioxide 30 Anion Gap 8.0 BUN 22 H Creatinine 0.8 Estimated GFR (MDRD) 81 L Glucose 117 H Calcium 8.9 Total Bilirubin 0.9 AST 51 H ALT 30 Alkaline Phosphatase 51 Total Protein 6.9 Albumin 4.2 Globulin 2.7 Albumin/Globulin Ratio 1.6 Procedures - Abscess I&D (location) R face Preparation: Lidocaine 1% Other: Other (The lesion on the right face was prepped and then locally infiltrated with lidocaine. An 18-gauge needle was inserted and no pus was returned. I still cultured the base.) PD MEDICAL DECISION MAKING - ED course ED course: 36-year-old woman presents with facial cellulitis. She has what appears to be a completely drained abscess that she squeezed herself last night. I was unable to get any purulent material out but the base was cultured. She has a history of MRSA. She also notes pedal edema, it is symmetric and new. Renal function is normal. Labs otherwise show mild anemia and mild hypokalemia. She is started on a diuretic with double my usual potassium supplementation given the above findings, clindamycin noting that Bactrim and potassium may not interact well, and doxepin for the itching and she needed something for sleep as well. Departure - Departure Disposition: 01 Home, Self Care Clinical Impression: Facial cellulitis, Pedal edema, Mild anemia Condition: Good Record reviewed to determine appropriate education?: Yes Instructions: ED Cellulitis Facial, ED Edema Legs Bilateral Prescriptions: clindamycin HCL [Cleocin HCl] 300 mg PO QID #28 cap Furosemide [Lasix] 20 mg PO DAILY #7 tablet HYDROcod/ACETAM 5/325 [[place] 5/325] 1 - 2 tab PO Q6H PRN #15 tablet PRN Reason: Pain Potassium Chloride 20 meq PO DAILY #7 tab Comments: I sent your prescriptions to [facility] in [place]. As far as the swelling your kidney function is normal, so a few days worth of A water pill should make that much better. In addition I am prescribing a potassium supplement since the water pill leeches potassium out of your system and the antibiotics for the infection on your face. Also doxepin which should help with sleep and itching. We are performing a wound culture, the results should be done in 48-72 hours. If antibiotic change is necessary we will call you. Return if worse in the meantime, especially if you develop increased pain, fevers, cannot keep down the medication. Otherwise follow-up with your physician in approximately 2-3 days. I am prescribing a short course of narcotic pain medication for you. These are potentially dangerous and addictive medications that should be used carefully. These medications may constipate you. Take an dmrc-[id number]-[id number] stool softener (docusate) twice daily with plenty of water while taking these medications. If you go 24 hours without a bowel movement, take embd-glx-[id number] miralax, per package instructions. Do not drink or drive while taking these medications. If you received narcotic or sedating medications while in the emergency department, do not drive for 24 hours. Store this medication in a safe, secure place and out of reach of children. It is a violation of federal law to give or sell this medication to another person or to use in a manner other than prescribed. The ED will not refill narcotic prescriptions, including prescriptions lost or stolen. To dispose of unwanted medications: 1. [facility] [address] in [place] has a medication drop box. They accept prescription medications (in pill form) Friday through Friday 9:00 a.m. to 5:00 p.m. 2. [facility] [employer] accepts prescription medications (in pill form only) for disposal year round. Call for more information. 3. Contact the [facility] for the next [facility] sponsored prescription drug collection event. , [phone], or [phone]; Note that many narcotic pain relievers also contain Tylenol/acetaminophen. Please ensure that your total dose of acetaminophen from all sources does not exceed 3 g (3000 mg) per day. Discharge Date/Time: 03/02/22 17:33
[2022-03-02] MEDS ORDERED: DOXEPIN 10 MG CAPSULE PO STA (16:41)
[2022-03-02 16:48] LABS: BASOPHILS % (AUTO) 0.3 %; EOSINOPHILS # (AUTO) 0.2 10^3/uL (0.0-0.7); EOSINOPHILS % (AUTO) 2.4 %; HCT - HEMATOCRIT 30.6 % (37.0-47.0); HGB - HEMOGLOBIN 10.7 g/dL (12.0-16.0); LYMPHOCYTES # (AUTO) 1.9 10^3/uL (1.5-3.5); LYMPHOCYTES % (AUTO) 24.7 %; MEAN CORPUSCULAR HEMOGLOBIN 31.6 pg (27.0-31.0); MEAN CORPUSCULAR VOLUME 90.3 fL (81.0-99.0); MEAN PLATELET VOLUME 9.1 fL (7.9-10.8); MONOCYTES # (AUTO) 0.7 10^3/uL (0.0-1.0); MONOCYTES % (AUTO) 9.7 %; NEUTROPHILS # (AUTO) 4.8 10^3/uL (1.5-6.6); NEUTROPHILS % (AUTO) 62.6 %; PLT - PLATELET COUNT 261 10^3/uL (130-450); RED BLOOD COUNT 3.39 10^6/uL (4.20-5.40); RED CELL DISTRIBUTION WIDTH 13.3 % (12.0-15.0); WHITE BLOOD COUNT 7.7 x10^3/uL (4.8-10.8)
[2022-03-02 17:01] LABS: ALBUMIN 4.2 g/dL (3.2-5.5); ALBUMIN/GLOBULIN RATIO 1.6 (1.0-2.2); BILIRUBIN,TOTAL 0.9 mg/dL (0.2-1.0); CALCIUM 8.9 mg/dL (8.5-10.3); CREATININE 0.8 mg/dL (0.4-1.0); POTASSIUM 3.2 mmol/L (3.5-5.0); TOTAL PROTEIN 6.9 g/dL (6.7-8.2)
[2022-03-02] MEDS ORDERED: CLINDAMYCIN 150 MG CAPSULE PO STA (17:11)
[2022-03-02] MEDS ORDERED: FUROSEMIDE 20 MG TABLET PO STA (17:11)
[2022-03-02] MEDS ORDERED: POTASSIUM CHLORIDE 20 MEQ TABLET PO STA (17:11)
[2022-03-02 17:34] VITALS: BP 146/87
[2022-03-02] MEDS ORDERED: DOXEPIN 10 MG CAPSULE PO SCH (18:00)
== END 2022-03-02 17:33 | disposition home or self-care (01) ==
LOC: ED 16:12
DX: L03.211 Cellulitis of face (principal); R60.0 Localized edema; D64.9 Anemia, unspecified; E87.6 Hypokalemia
CPT/HCPCS: 10160; 36415; 80053; 85025; 87070; 87181; 87205; 99282; 99284; A9270

== ENCOUNTER 2022-03-07 13:47 | Emergency (ER) | payer OTHER, MEDICAID ==
--- NOTE | 2022-03-07 14:12 | ED Physician Documentation ---
History of Present Illness - Stated complaint Stated Complaint: WOUND/MRSA - Chief complaint Chief Complaint: General - Additonal information Additional information: 36-year-old female was brought to the emergency department for evaluation of worsening generalized body edema as well as to rule out sepsis. She has a longstanding history of methamphetamine use but has been incarcerated for quite some time. She was return to incarceration on or about 06 March. However she was seen by my colleague on 02 March for a facial cellulitis. At that time she was started on clindamycin. They did note during that clinical encounter some lower extremity edema for which she was started on Lasix and potassium. Despite taking this while incarcerated she has had worsening edema. There is no chest pain or shortness of air though there is mild orthopnea. Room air saturations are 99%. Review of Systems Constitutional: denies: Fever, Chills Eyes: reports: Reviewed and negative Ears: reports: Reviewed and negative Nose: reports: Reviewed and negative Throat: reports: Reviewed and negative Cardiac: reports: Pedal edema. 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 - Present Medications Home Medications: Ambulatory Orders Medication Instructions Recorded Confirmed Furosemide [Lasix] 20 mg PO DAILY #7 tablet 03/02/22 HYDROcod/ACETAM 5/325 [[place] 5/325] 1 - 2 tab PO Q6H PRN #15 tablet 03/02/22 Potassium Chloride 20 meq PO DAILY #7 tab 03/02/22 QUEtiapine [SEROquel] 75 mg 03/02/22 Sertraline HCl [Zoloft] 150 mg PO 03/02/22 clindamycin HCL [Cleocin HCl] 300 mg PO QID #28 cap 03/02/22 cloBAZam [Clobazam] 100 mg 03/02/22 Albuterol Sulf [Ventolin Hfa 1 - 2 puffs INH Q4HR PRN #1 gm 03/07/22 Inhaler] Azithromycin [Zithromax] 0 mg PO DAILY #6 tablet 03/07/22 Cefpodoxime Proxetil [Vantin] 200 mg PO Q12H 7 Days #28 tablet 03/07/22 Furosemide [Lasix] 20 mg PO BID 14 Days #28 tablet 03/07/22 - Allergies Allergies/Adverse Reactions: Allergies Allergy/AdvReac Type Severity Reaction Status Date / Time amoxicillin AdvReac Intermediate Hives Verified 03/07/22 13:58 - Social History Does the pt smoke?: No Smoking Status: Never smoker Does the pt drink ETOH?: No Does the pt have substance abuse?: No - Immunizations Immunizations are current?: Yes - POLST Patient has POLST: No PD ED PE NORMAL - General General: Alert and oriented X 3, No acute distress, Well developed/nourished, Other (Obese) - HEENT HEENT: Other (Scab wound seen on right cheek. No surrounding erythema drainage or induration) - Cardiac Cardiac: RRR, No murmur, No gallop, Strong equal pulses, Other (Generalized edema of the lower extremity feet calves to knees. No erythema. 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 Eye Opening: Spontaneous Motor: Obeys Commands Verbal: Oriented GCS Score: 15 Results - Vitals Vitals: Vital Signs - 24 hr 03/07/22 03/07/22 13:55 14:30 Temperature 36.6 C Heart Rate 110 H 96 Respiratory 16 14 Rate Blood Pressure 148/92 H 141/89 H O2 Saturation 98 99 Oxygen O2 Source Room air - Labs Labs: Laboratory Tests 03/07/22 03/07/22 03/07/22 14:10 14:15 14:15 WBC 5.6 RBC 3.20 L Hgb 10.2 L Hct 30.0 L MCV 93.8 MCH 31.9 H MCHC 34.0 RDW 13.4 Plt Count 282 MPV 8.6 Neut # (Auto) 2.8 Lymph # (Auto) 2.0 [place] # (Auto) 0.5 Eos # (Auto) 0.1 Baso # (Auto) 0.0 Absolute Nucleated RBC 0.00 Nucleated RBC % 0.0 Sodium 138 Potassium 3.6 Chloride 99 L Carbon Dioxide 29 Anion Gap 10.0 BUN 14 Creatinine 0.9 Estimated GFR (MDRD) 70 L Glucose 92 Lactic Acid Calcium 8.8 Total Bilirubin 0.5 AST 53 H ALT 64 H Alkaline Phosphatase 56 B-Natriuretic Peptide Total Protein 6.7 Albumin 4.0 Globulin 2.7 Albumin/Globulin Ratio 1.5 Lipase 29 TSH Thyroxine (T4) Urine Color YELLOW Urine Clarity CLEAR Urine pH 6.5 Ur Specific [place] 1.025 Urine Protein NEGATIVE Urine Glucose (UA) NEGATIVE Urine Ketones NEGATIVE Urine Occult Blood TRACE-INTA Urine Nitrite NEGATIVE Urine Bilirubin NEGATIVE Urine Urobilinogen 0.2 (NORMAL) Ur Leukocyte Esterase NEGATIVE Ur Microscopic Review NOT INDICATED Urine Culture Comments NOT INDICATED 03/07/22 03/07/22 03/07/22 14:15 14:15 14:15 WBC RBC Hgb Hct MCV MCH MCHC RDW Plt Count MPV Neut # (Auto) Lymph # (Auto) [place] # (Auto) Eos # (Auto) Baso # (Auto) Absolute Nucleated RBC Nucleated RBC % Sodium Potassium Chloride Carbon Dioxide Anion Gap BUN Creatinine Estimated GFR (MDRD) Glucose Lactic Acid 1.9 Calcium Total Bilirubin AST ALT Alkaline Phosphatase B-Natriuretic Peptide 103 H Total Protein Albumin Globulin Albumin/Globulin Ratio Lipase TSH 0.97 Thyroxine (T4) 6.09 Urine Color Urine Clarity Urine pH Ur Specific [place] Urine Protein Urine Glucose (UA) Urine Ketones Urine Occult Blood Urine Nitrite Urine Bilirubin Urine Urobilinogen Ur Leukocyte Esterase Ur Microscopic Review Urine Culture Comments - Rads (name of study) cxr Radiology: Final report received (Moderate atypical pneumonia) PD MEDICAL DECISION MAKING - ED course Complexity details: reviewed results, re-evaluated patient, considered differential, d/w patient ED course: 36-year-old female comes to the emergency department for our [facility] for evaluation of tachycardia and lower extremity swelling. She was seen earlier last week for facial cellulitis and started on clindamycin. At that time she had reported lower extremity edema and was started on Lasix. Patient does have a remote history of habitual meth use though none significantly for at least 6 months. She stated her leg swelling did not start until she got started on Suboxone. Here in the emergency department today screening labs show no leukocytosis. She has no fevers. Her blood pressure is normal. She does not present as septic. Her screening electrolytes show preserved and normal renal function. Liver function testing occluding her albumin are normal. A chest x-ray does suggest a moderate atypical pneumonia. For this she will be started on azithromycin. She is requesting albuterol as well. I discussed with the patient that the cause of her lower extremity edema is not clear. She does not require admission to the hospital but given the history of methamphetamine use she would benefit from an outpatient echocardiogram to assess that there is appropriate ejection fraction and no congestive heart failure contributing to the symptoms. Emergent return precautions discussed Departure - Departure Disposition: 01 Home, Self Care Clinical Impression: Lower extremity edema, Atypical pneumonia Condition: Stable Record reviewed to determine appropriate education?: Yes Prescriptions: Albuterol Sulf [Ventolin Hfa Inhaler] 1 - 2 puffs INH Q4HR PRN #1 gm PRN Reason: Shortness Of Air/Wheezing Furosemide [Lasix] 20 mg PO BID 14 Days #28 tablet Cefpodoxime Proxetil [Vantin] 200 mg PO Q12H 7 Days #28 tablet Azithromycin [Zithromax] 0 mg PO DAILY #6 tablet Comments: Jacquelin you were seen today for concerns of worsening lower extremity edema and some shortness of air. You are not septic. Your chest x-ray does show a moderate pneumonia. To treat this we are starting you on cefpodoxime. You take 200 mg twice daily for 1 week. I would also like you to take azithromycin for the next 5 days. I have prescribed albuterol to help with your asthma. The cause of your lower extremity swelling is not clear. Your kidney and liver function is normal. I am increasing your furosemide or Lasix to twice daily Because of your remote history of methamphetamine use we must consider congestive heart failure as a cause for lower extremity edema. This should be evaluated as an outpatient and you will need an echocardiogram. An echocardiogram cannot be done through the emergency department. It will need to be arranged as an outpatient with the long-term or through your primary care provider. If your swelling is worsening despite the increase in the Lasix to twice daily, you have severe shortness of air then you should return to the ER for a second evaluation.
[2022-03-07 14:24] LABS: BASOPHILS % (AUTO) 0.4 %; EOSINOPHILS # (AUTO) 0.1 10^3/uL (0.0-0.7); EOSINOPHILS % (AUTO) 2.3 %; HGB - HEMOGLOBIN 10.2 g/dL (12.0-16.0); LYMPHOCYTES % (AUTO) 36.6 %; MEAN CORPUSCULAR HEMOGLOBIN 31.9 pg (27.0-31.0); MEAN CORPUSCULAR VOLUME 93.8 fL (81.0-99.0); MEAN PLATELET VOLUME 8.6 fL (7.9-10.8); MONOCYTES # (AUTO) 0.5 10^3/uL (0.0-1.0); MONOCYTES % (AUTO) 9.5 %; NEUTROPHILS # (AUTO) 2.8 10^3/uL (1.5-6.6); NEUTROPHILS % (AUTO) 50.8 %; PLT - PLATELET COUNT 282 10^3/uL (130-450); RED CELL DISTRIBUTION WIDTH 13.4 % (12.0-15.0); WHITE BLOOD COUNT 5.6 x10^3/uL (4.8-10.8)
[2022-03-07 14:25] LABS: BILIRUBIN,URINE NEGATIVE (NEGATIVE); GLUCOSE, URINE (UA) NEGATIVE (NEGATIVE); KETONES,URINE (UA) NEGATIVE (NEGATIVE); LEUKOCYTE ESTERASE, URINE NEGATIVE (NEGATIVE); NITRITE,URINE NEGATIVE (NEGATIVE); OCCULT BLOOD,URINE TRACE-INTA (NEGATIVE); PH,URINE 6.5 PH (5.0-7.5); PROTEIN,URINE NEGATIVE (NEGATIVE); UROBILINOGEN,URINE 0.2 (NORMAL) E.U./dL (NORMAL)
[2022-03-07 14:28] LABS: CLARITY,URINE CLEAR (CLEAR)
[2022-03-07 14:42] LABS: ALBUMIN/GLOBULIN RATIO 1.5 (1.0-2.2); BILIRUBIN,TOTAL 0.5 mg/dL (0.2-1.0); CALCIUM 8.8 mg/dL (8.5-10.3); CREATININE 0.9 mg/dL (0.4-1.0); POTASSIUM 3.6 mmol/L (3.5-5.0); TOTAL PROTEIN 6.7 g/dL (6.7-8.2)
--- NOTE | 2022-03-07 14:48 | XRAY Report ---
PROCEDURE: Chest 1 View X-Ray INDICATIONS: chest pain TECHNIQUE: One view of the chest was acquired. COMPARISON: Chest x-ray dated 06/18/2018 FINDINGS: Surgical changes and devices: None. Lungs and pleura: No pleural effusions or pneumothorax. There is moderate diffuse reticulonodular an d groundglass pulmonary opacity. Mediastinum: Mediastinal contours appear normal. Heart size is normal. Bones and chest wall: No suspicious bony lesions. Overlying soft tissues appear unremarkable. IMPRESSION: Moderate atypical pneumonia. Reviewed by: Denilson Cobb MD on 03/07/2022 2:47 PM PDT Approved by: Denilson Cobb MD on 03/07/2022 2:47 PM PDT Station ID: [id number]
[2022-03-07 14:49] LABS: T4 (THYROXINE) 6.09 ug/dL (6.09-12.23)
[2022-03-07 14:53] LABS: THYROID STIMULATING HORMONE 0.97 uIU/mL (0.34-5.60)
[2022-03-07 15:48] VITALS: BP 130/61
== END 2022-03-07 15:43 | disposition home or self-care (01) ==
LOC: ED 13:47
DX: R60.9 Edema, unspecified (principal); J18.8 Other pneumonia, unspecified organism
CPT/HCPCS: 36415; 80048; 80053; 81001; 81003; 83605; 83690; 83880; 84436; 84443; 85025; 87086; 99284

== ENCOUNTER 2022-07-17 22:01 | Emergency (ER) | payer OTHER, MEDICAID ==
[2022-07-17 22:16] VITALS: BP 175/105
[2022-07-17] MEDS ORDERED: SULFAMETH/TRIMETH DS 800/160 MG TABLET PO STA (22:37)
--- NOTE | 2022-07-17 22:52 | ED Physician Documentation ---
PD HPI SKIN - Stated complaint Stated Complaint: LT SIDE SWELLING FACE - Chief complaint Chief Complaint: Wound - History obtained from History obtained from: Patient - Additional information Additional information: Patient is a 36-year-old female presenting for evaluation of redness and swelling to left temporal region starting yesterday. She went to the walk-in clinic today and they started her on Bactrim.She was referred to the emergency department for possible I&D. Patient denies IV drug use, fevers, headache, chest pain or difficulty breathing. Reports that she believes it started with an ingrown hair. Has had abscesses to the face and other regions of the body that have required drainage in the past.Reports a history of MRSA. 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 - Present Medications Home Medications: Ambulatory Orders Medication Instructions Recorded Confirmed No Known Home Medications 07/17/22 07/17/22 - Allergies Allergies/Adverse Reactions: Allergies Allergy/AdvReac Type Severity Reaction Status Date / Time amoxicillin AdvReac Intermediate Hives Verified 07/17/22 22:11 - Social History Does the pt smoke?: No Smoking Status: Never smoker Does the pt drink ETOH?: No Does the pt have substance abuse?: No - Immunizations Immunizations are current?: Yes - POLST Patient has POLST: No PD ED PE NORMAL - General General: Alert and oriented X 3, No acute distress, Well developed/nourished - HEENT HEENT: Atraumatic, Moist mucous membranes, Pharynx benign, Other (Small area of redness and swelling to left temporal region, no fluctuance) - Neck Neck: Supple, no meningeal sign - Cardiac Cardiac: RRR, No murmur - Respiratory Respiratory: No respiratory distress, Clear bilaterally - Derm Derm: Warm and dry PD ED PE EXPANDED - HEENT HEENT Visual: 1 - rash Results - Vitals Vitals: Vital Signs - 24 hr 07/17/22 22:11 Temperature 36.9 C Heart Rate 115 H Blood Pressure 175/105 H O2 Saturation 99 Oxygen O2 Source Room air PD MEDICAL DECISION MAKING - ED course ED course: Patient with redness and swelling to left temporal region.No discrete fluid collection seen with the use of bedside ultrasound. There is no fluctuance to the wound.Patient had been started on Bactrim but had not started the first dose. Pharmacy is closed tonight so I did give her 1 dose here. Recommend continued antibiotics as well as warm compresses to the area and close follow- up. Patient advised on strict return precautions for any worsening symptoms. Departure - Departure Disposition: 01 Home, Self Care Clinical Impression: Cellulitis of face Condition: Stable Instructions: ED Cellulitis Facial Comments: Please continue with the antibiotic that you are prescribed by the walk-in clinic. I would apply warm compresses 4-5X/day to The area of redness. I do not currently see a pocket of pus on ultrasound to drain. If you have any worsening symptoms please return to the ER. Discharge Date/Time: 07/17/22 22:58
== END 2022-07-17 22:58 | disposition home or self-care (01) ==
LOC: ED 22:01
DX: L03.211 Cellulitis of face (principal)
CPT/HCPCS: 99282; A9270

== ENCOUNTER 2023-01-24 23:02 | Outpatient (CLI) | payer MEDICAID ==
--- NOTE | 2023-01-25 03:33 | Ultrasound Report ---
PROCEDURE: OB First Trimester INDICATIONS: POSITIVE TEST OUTSIDE/PRIOR DATING DATA: Last menstrual period (LMP): Unsure. First dating scan (date and location): 01/24/2023. Estimated date of delivery (WADE) from first dating scan: 07/29/2023. TECHNIQUE: Real-time scanning was performed of the fetus and maternal pelvic organs, with image documentation. COMPARISON: None. FINDINGS: Embryo: There is an intrauterine with a gestational sac and pole demonstrated. The c rown-rump length measures 7.2 cm corresponding to a calculated gestational age of 13 weeks 3 days cor responding to an estimated delivery date of 07/29/2023. There is heart motion with a rate of 15 8 bpm. Measurement variability in dating: +/- 4 weeks by LMP, +/- 7 days by mean sac diameter (use before 6 weeks gestation if crown-rump length not able to be measured), +/- 5 days by crown-rump length (6-12 weeks gestation). Maternal organs: There is a thick-walled cyst in the right ovary measuring up to 1.8 cm compatible co rpus luteum. Left ovary not well visualized. IMPRESSION: 1. Single living intrauterine with calculated gestational age of 13 weeks 3 days correspond ing to an estimated delivery date of 07/29/2023. Reviewed by: Angel Eid MD on 01/25/2023 3:32 AM PDT Approved by: Angel Eid MD on 01/25/2023 3:32 AM PDT Station ID: [id number]
== END 2023-01-24 23:03 | disposition home or self-care (01) ==
LOC: DI 23:02
PROVIDERS: ATTEND Obstetrics & Gynecology
DX: Z34.91 Encounter for supervision of normal pregnancy, unspecified, first trimester (principal)

== ENCOUNTER 2023-02-14 08:00 | Outpatient (CLI) | payer MEDICAID ==
[2023-02-14 20:05] LABS: CHLAMYDIA TRACHOMATIS DNA NEGATIVE (NEGATIVE); NEISSERIA GONORRHOEAE DNA NEGATIVE (NEGATIVE)
[2023-02-14 20:16] LABS: BACTERIAL VAGINOSIS DNA NEGATIVE (NEGATIVE); CANDIDA GLABRATA DNA NEGATIVE (NEGATIVE); CANDIDA GROUP DNA POSITIVE (NEGATIVE); CANDIDA KRUSEI DNA NEGATIVE (NEGATIVE); TRICHOMONAS VAGINALIS DNA NEGATIVE (NEGATIVE)
== END 2023-02-14 23:59 | disposition home or self-care (01) ==
LOC: LAB.WC 08:00
PROVIDERS: ATTEND Nurse Practitioner
DX: N89.8 Other specified noninflammatory disorders of vagina (principal); Z11.3 Encounter for screening for infections with a predominantly sexual mode of transmission
CPT/HCPCS: 81514; 87491; 87591; 87661

== ENCOUNTER 2023-06-05 11:41 | Outpatient (CLI) | payer MEDICAID ==
[2023-06-05 13:01] LABS: BASOPHILS % (AUTO) 0.2 %; EOSINOPHILS # (AUTO) 0.1 10^3/uL (0.0-0.7); EOSINOPHILS % (AUTO) 0.7 %; HCT - HEMATOCRIT 33.3 % (37.0-47.0); HGB - HEMOGLOBIN 11.6 g/dL (12.0-16.0); LYMPHOCYTES # (AUTO) 2.1 10^3/uL (1.5-3.5); MEAN CORPUSCULAR HEMOGLOBIN 30.1 pg (27.0-31.0); MEAN CORPUSCULAR HGB CONC 34.8 g/dL (32.0-36.0); MEAN CORPUSCULAR VOLUME 86.5 fL (81.0-99.0); MEAN PLATELET VOLUME 9.2 fL (7.9-10.8); MONOCYTES # (AUTO) 0.7 10^3/uL (0.0-1.0); MONOCYTES % (AUTO) 7.6 %; NEUTROPHILS # (AUTO) 6.5 10^3/uL (1.5-6.6); NEUTROPHILS % (AUTO) 69.2 %; PLT - PLATELET COUNT 311 10^3/uL (130-450); RED BLOOD COUNT 3.85 10^6/uL (4.20-5.40); WHITE BLOOD COUNT 9.4 x10^3/uL (4.8-10.8)
[2023-06-05 13:36] LABS: FERRITIN 5.1 ng/mL (11.0-306.8)
[2023-06-06 06:10] LABS: HBsAG SCREEN Negative (Negative)
[2023-06-06 07:10] LABS: RPR Non Reactive (Non Reactive)
[2023-06-06 09:09] LABS: VARICELLA-ZOSTER AB IGG 1188 index (Immune >165)
[2023-06-07 01:08] LABS: HCV AB Non Reactive (Non Reactive); HIV SCREEN 4TH GENERATION Non Reactive (Non Reactive)
== END 2023-06-05 11:42 | disposition home or self-care (01) ==
LOC: LAB 11:41
PROVIDERS: ATTEND Nurse Practitioner
DX: O26.819 Pregnancy related exhaustion and fatigue, unspecified trimester (principal); Z86.2 Personal history of diseases of the blood and blood-forming organs and certain disorders involving the immune mechanism; Z3A.29 29 weeks gestation of pregnancy
CPT/HCPCS: 36415; 82728; 82950; 85025; 85027; 86592; 86762; 86787; 86803; 86850; 86900; 86901; 87340; 87389

== ENCOUNTER 2023-06-30 08:00 | Outpatient (CLI) | payer MEDICAID | END 2023-06-30 23:59 | disposition home or self-care (01) | LOC: LAB.WC 08:00 | PROVIDERS: ATTEND Obstetrics & Gynecology | DX: Z36.85 Encounter for antenatal screening for Streptococcus B (principal) | CPT/HCPCS: 87081; 87797 ==

== ENCOUNTER 2023-07-02 15:44 | Outpatient (CLI) | payer MEDICAID ==
[2023-07-02 16:13] VITALS: O2SAT 100
[2023-07-02 16:22] VITALS: BP 144/104
[2023-07-02 17:11] LABS: BASOPHILS % (AUTO) 0.3 %; EOSINOPHILS # (AUTO) 0.1 10^3/uL (0.0-0.7); EOSINOPHILS % (AUTO) 0.7 %; HCT - HEMATOCRIT 34.3 % (37.0-47.0); HGB - HEMOGLOBIN 11.1 g/dL (12.0-16.0); LYMPHOCYTES # (AUTO) 1.5 10^3/uL (1.5-3.5); LYMPHOCYTES % (AUTO) 22.4 %; MEAN CORPUSCULAR HEMOGLOBIN 28.8 pg (27.0-31.0); MEAN CORPUSCULAR HGB CONC 32.4 g/dL (32.0-36.0); MEAN CORPUSCULAR VOLUME 88.9 fL (81.0-99.0); MEAN PLATELET VOLUME 9.8 fL (7.9-10.8); MONOCYTES # (AUTO) 0.5 10^3/uL (0.0-1.0); MONOCYTES % (AUTO) 7.4 %; NEUTROPHILS # (AUTO) 4.7 10^3/uL (1.5-6.6); NEUTROPHILS % (AUTO) 69.1 %; PLT - PLATELET COUNT 269 10^3/uL (130-450); RED BLOOD COUNT 3.86 10^6/uL (4.20-5.40); RED CELL DISTRIBUTION WIDTH 12.9 % (12.0-15.0); WHITE BLOOD COUNT 6.9 x10^3/uL (4.8-10.8)
--- NOTE | 2023-07-02 17:19 | HISTORY & PHYSICAL EXAMINATION ---
Admit History - Visit Reason Visit Reason: Other (Pt called in by physician for having elevated blood pressure at clinic and needing to come to labor and delivery for evaluation for preEclampsia.) - : 7 Parity: 2 Premature: 0 Ectopic: 0 : 4 Care: positive: [facility] Risk/History: positive: Previous , induced HTN, High risk Complications This : positive: induced HTN Smoking Status: Never smoker - Mother's Labs Mother's Blood Type: positive: O Mother's RH: positive: Positive GBS: positive: Other Rubella Status: positive: Immune - Other Maternal History Other Maternal History: 37yo presented today because Dr. Perez called her in for high BP. Mild JEFFREY now, swollen legs B/L, and BP elevated and not severe. H/O 2 prior C/S. Will eval for PreEclampsia and deliver if indicated. Will offer BMZ as well. Pt then presented phone numbers and resources for us to call to get her transferred to a treatment / hospital facility where she could stay with her baby while going through rehab. Called those numbers and am awaiting call tomorrow morning from [facility] in [facility]. +FM, -LOF, -VB, -Ctx reports using fentanyl and meth recently. and has a skin infection on her face, she feels it is moving towards her jaw, and has a lesion on her tounge that she reports is painful. LMP: 11/23/22 WADE by LMP: 08/30/23 US: 01/24/23, 13+3 weeks, NOT c/w LPM Final WADE: 07/29/2023 03/17/23: @20 weeks has not yet scheduled FAS or completed labs (reminders given) Housing instability. Hx of substance abuse. Denies any recent use until presenting to clinic c/b: 1. Elevated BPs last two clinic visits, and was instructed to go to L&D and did not go. She now reports that she has been scared that her baby would be taken from her. She presented to the hospital today after MD reached out - and came with a list of treatment facilities, phone numbers, processes -- she reports that she sought out fentanyl because of her tounge lesion, and then heard from an addiction doctor that "you shouldn't stop fentanyl in because it's worse for the baby" - so she was in between a rock and a hard place. She worked very hard to be sober, and has had a best friend from overdose after becoming sober, so is acutely aware of the dangers. highly motivated towards sobriety. 1. h/o C/S x2 - does not want this baby born on 07/22 (that's her daughters birthday) - will schedule 07/24 AM. Aware that there is only so much we can control 2. scant ANC. 3. housing instability - resolved, has her own apartment, subsidized housing, here in [place]. 4. h/o substance abuse - not since detention, is in AA and treatment - has one of her children back with her. feels safe and secure with this . 5. 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 covid in - needs NSTs from 34w orderedd 06/16 7. h/o asthma - refilling albuterol. 8. heartburn - on tums / malox, adding pepcid. 9. contraception - BTL - PM 330 signed 19 May 2023. 10. AMA - needs hali sono. Scheduled 07/02 Pre- Weight:188.6 BMI: 38.23 Blood type: O+ Rh: positive Antibody: negative CBC:early not done RUB:imm VZV:imm HBsAg: Neg HepC: NR RPR/AB-EIA: NR HIV: NR PAP: 02/13/23 normal GC/CT: negative HSV: Desnies in self or partner Genetic testing: Reviewed 02/13 Flu: given 05/19 FAS: ordered 02/13 reminded to schedule 03/17/23-Currently scheduled 07/02 -- still not done. Antibody screen:Negative 3rd trimester 11./33.3 311 3rd trimester HIV GBS: 06/30 PCN allergy. Delivery plan: Needs [facility] - HPI Vital Signs Temperature 98.1 F 07/02/23 16:05 Heart Rate 102 H 07/02/23 16:05 Respiratory Rate 17 07/02/23 16:05 Blood Pressure 143/103 H 07/02/23 16:05 O2 Saturation 100 07/02/23 16:05 Temperature 98.1 F 07/02/23 16:08 Heart Rate 101 H 07/02/23 16:12 Respiratory Rate 17 07/02/23 16:05 Blood Pressure 144/104 H 07/02/23 16:12 O2 Saturation 100 07/02/23 16:05 If not protocol: Oxygen Flow, liters/minute - NST Procedure 125 mod gabi + A cells no D cells reactive Meds/Allgy - Home Medications Home Medications: Ambulatory Orders Medication Instructions Recorded Confirmed No Known Home Medications 07/17/22 07/17/22 - Allergies Allergies/Adverse Reactions: Allergies Allergy/AdvReac Type Severity Reaction Status Date / Time amoxicillin AdvReac Intermediate Hives Verified 07/17/22 22:11 Review of Systems - Other Findings Other Findings: Denies: F/C/N/V/CP/SOB Denies: dizziness, weakness, lightheadedness, difficulty with ambulation, palpitations Denies: JEFFREY / visual changes Physical - Abdominal Exam Vital Signs: Temp Pulse Resp BP Pulse Ox O2 Flow Rate 98.1 F 101 H 17 144/104 H 100 07/02/23 16:08 07/02/23 16:12 07/02/23 16:05 07/02/23 16:12 07/02/23 16:05 Uterine Resting Tone: positive: Soft - Monitoring Heart Rate Baseline: 125 Strip Review: positive: Category I - Speculum Exam Speculum Exam Performed: positive: No Plan for Labor - Plan For Labor I expect patient to be DC'd or transferred within 96 hours.: Yes Plan for Labor: 37yo @ 36w2d presents with elevated BP, h/o 2 prior C/S, admits to fentanyl and meth use recently elevated BP -- f/u [facility] labs -- keep in house overnight to monitor BPs -- treat BPs if enter severe range. 2 prior C/S -- for RCS when indicated FWB -cat 1 -admin BMZ recent use of fentanyl & meth - actively seeking rehab program - presented with numbers and places for us to call - really, she guided me - will send records and await START program [facility] to call us back tomorrow after physician review face infection - start bactrim tounge lesion - maybe HSV? - syphillis testing, if negative give valcylovir.
[2023-07-02 17:27] LABS: ALBUMIN 3.2 g/dL (3.2-5.5); ALBUMIN/GLOBULIN RATIO 1.2 (1.0-2.2); BILIRUBIN,TOTAL 0.5 mg/dL (0.2-1.0); CALCIUM 9.5 mg/dL (8.5-10.3); CREATININE 0.7 mg/dL (0.6-1.3); POTASSIUM 3.6 mmol/L (3.5-4.5); TOTAL PROTEIN 5.9 g/dL (6.4-8.9)
--- NOTE | 2023-07-02 17:58 | PROVIDER PROGRESS NOTE ---
Subjective - Prog Note Date Prog Note Date: 07/02/23 Prog Note Time: 17:57 - Subjective Subjective: pt having a childcare urgency -- needs to take her daughter from across the street to her daughter's fathers house 10 miles away. has no one else to do this, and doesn't want her daughter to be home alone all night. reports that she will return. she "promises" to return. stable at this point. will D/C for immediate readmission upon return. Objective - Vital Signs/Intake & Output Vital Signs: Vital Signs x48h Temp Pulse Resp BP Pulse Ox 07/02/23 16:12 101 H 144/104 H 07/02/23 16:08 98.1 F 07/02/23 16:05 98.1 F 102 H 17 143/103 H 100 - Lab Results Fish Bones: 07/02/23 17:02 07/02/23 17:02 Other Labs: Lab Results x24hrs 07/02/23 07/02/23 Range/Units 17:02 17:02 WBC 6.9 (4.8-10.8) x10^3/uL RBC 3.86 L (4.20-5.40) 10^6/uL Hgb 11.1 L (12.0-16.0) g/dL Hct 34.3 L (37.0-47.0) % MCV 88.9 (81.0-99.0) fL MCH 28.8 (27.0-31.0) pg MCHC 32.4 (32.0-36.0) g/dL RDW 12.9 (12.0-15.0) % Plt Count 269 (130-450) 10^3/uL MPV 9.8 (7.9-10.8) fL Neut # (Auto) 4.7 (1.5-6.6) 10^3/uL Lymph # (Auto) 1.5 (1.5-3.5) 10^3/uL Grimes # (Auto) 0.5 (0.0-1.0) 10^3/uL Eos # (Auto) 0.1 (0.0-0.7) 10^3/uL Baso # (Auto) 0.0 (0.0-0.1) 10^3/uL Absolute Nucleated RBC 0.00 x10^3/uL Nucleated RBC % 0.0 /100WBC Sodium 134 L (135-145) mmol/L Potassium 3.6 (3.5-4.5) mmol/L Chloride 100 L (101-111) mmol/L Carbon Dioxide 28 (21-32) mmol/L Anion Gap 6.0 (6-13) BUN 11 (6-20) mg/dL Creatinine 0.7 (0.6-1.3) mg/dL Estimated GFR (MDRD) 94 (>89) Glucose 94 (74-104) mg/dL Calcium 9.5 (8.5-10.3) mg/dL Total Bilirubin 0.5 (0.2-1.0) mg/dL AST 20 (10-42) IU/L ALT 15 (10-60) IU/L Alkaline Phosphatase 196 H (42-121) IU/L Total Protein 5.9 L (6.4-8.9) g/dL Albumin 3.2 (3.2-5.5) g/dL Globulin 2.7 (2.1-4.2) g/dL Albumin/Globulin Ratio 1.2 (1.0-2.2)
[2023-07-02] MEDS ORDERED: BETAMETHASONE 30 MG/5 ML VIAL IM ONE (18:00)
[2023-07-02] MEDS ORDERED: SULFAMETH/TRIMETH DS 800/160 MG TABLET PO SCH (18:15)
--- NOTE | 2023-07-03 10:15 | DISCHARGE SUMMARY ---
Discharge Summary Admit Date: 07/02/23 Discharge Date: 07/03/23 Discharging Provider: Aguila Buck MD Code Status: Attempt Resuscitation Condition at Discharge: Stable Discharge Disposition: 01 Home, Self Care - DIAGNOSES Admission Diagnoses: Drug abuse in 36 weeks gestation Elevated blood pressure Discharge Diagnoses with Status of Each Condition: Drug abuse in 36 weeks gestation Elevated blood pressure All stable - HPI History of Present Illness: Patient doing well overnight. No acute events. Blood pressure remains elevated but nonsevere. Fetus category 1. No change in vision, right upper quadrant pain, headache. Tearful about the process and embarrassed, wants to get help. Have arranged transfer to [facility] with the start program to get maternal help. Patient will transfer by private vehicle. - HOSPITAL COURSE Hospital Course: Patient was admitted for observation and kept overnight for evaluation of blood pressures and wellbeing. She received 1 dose of betamethasone last night and had no acute events overnight. Did use multiple drugs of abuse yesterday, but is desiring to transfer for delivery of higher level of care with NICU support and maternal rehabilitation support. She is excepted by the start program at [facility] in [place]. - ALLERGIES Allergies/Adverse Reactions: Allergies Allergy/AdvReac Type Severity Reaction Status Date / Time amoxicillin AdvReac Intermediate Hives Verified 07/17/22 22:11 - MEDICATIONS Home Medications: Ambulatory Orders Medication Instructions Recorded Confirmed No Known Home Medications 07/17/22 07/17/22 - LABS Result Diagrams: 07/02/23 17:02 07/02/23 17:02 - FOLLOW UP Follow Up: With [facility] women's care in 2 weeks or at discharge from rehabilitation program. - TIME SPENT Time Spent in Discharge (Minutes): 40
== END 2023-07-02 18:10 | disposition home or self-care (01) ==
LOC: WFO 15:44 → FBP 15:44 → WFO 18:10
PROVIDERS: ATTEND Obstetrics & Gynecology
DX: O99.891 Other specified diseases and conditions complicating pregnancy (principal); R03.0 Elevated blood-pressure reading, without diagnosis of hypertension; R60.0 Localized edema; O99.323 Drug use complicating pregnancy, third trimester; F15.90 Other stimulant use, unspecified, uncomplicated; F11.90 Opioid use, unspecified, uncomplicated; O99.713 Diseases of the skin and subcutaneous tissue complicating pregnancy, third trimester; L08.9 Local infection of the skin and subcutaneous tissue, unspecified; O99.613 Diseases of the digestive system complicating pregnancy, third trimester; K13.70 Unspecified lesions of oral mucosa; O34.219 Maternal care for unspecified type scar from previous cesarean delivery; O09.523 Supervision of elderly multigravida, third trimester; Z3A.36 36 weeks gestation of pregnancy; Z86.16 Personal history of COVID-19
CPT/HCPCS: 36415; 59025; 80053; 85025; 86780; 86850; 86900; 86901; 99215; A9270; 96372

== ENCOUNTER 2023-07-02 23:21 | Observation (INO) | payer MEDICAID ==
--- NOTE | 2023-07-02 23:46 | HISTORY & PHYSICAL EXAMINATION ---
Admit History - Visit Reason Visit Reason: Other (Elevated Blood Pressure) - Smoking Status: Never smoker - Mother's Labs Mother's Blood Type: positive: O Mother's RH: positive: Positive GBS: positive: Other (unknown) Rubella Status: positive: Immune - Other Maternal History Other Maternal History: HPI: Patient is a 37-year-old -0-4-2 presented today at 36 weeks gestation for elevated blood pressure. She was admitted previously with intention to move towards delivery, but had a childcare emergency and had to leave. Blood pressure has been normal. On that admission, she admitted to restarting methamphetamine and fentanyl use and has been embarrassed to come. She is finally ready to get care and is admitted for observation while we attempt transfer to a facility that can accommodate her and her given the high risk of withdrawal and need for maternal support after . We Course LMP: 11/23/22 WADE by LMP: 08/30/23 US: 01/24/23, 13+3 weeks, NOT c/w LPM Final WADE: 07/29/2023 03/17/23: @20 weeks has not yet scheduled FAS or completed labs (reminders given) Housing instability. Hx of substance abuse. Denies any recent use until presenting to clinic c/b: 1. Elevated BPs last two clinic visits, and was instructed to go to L&D and did not go. She now reports that she has been scared that her baby would be taken from her. She presented to the hospital today after MD reached out - and came with a list of treatment facilities, phone numbers, processes -- she reports that she sought out fentanyl because of her tounge lesion, and then heard from an addiction doctor that "you shouldn't stop fentanyl in because it's worse for the baby" - so she was in between a rock and a hard place. She worked very hard to be sober, and has had a best friend from overdose after becoming sober, so is acutely aware of the dangers. highly motivated towards sobriety. 1. h/o C/S x2 - does not want this baby born on 07/22 (that's her daughters birthday) - will schedule 07/24 AM. Aware that there is only so much we can control 2. scant ANC. 3. housing instability - resolved, has her own apartment, subsidized housing, here in [place]. 4. h/o substance abuse -clean for a while after incarceration but relapsed. 5. 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 covid in - needs NSTs from 34w orderedd 06/16 7. h/o asthma - refilling albuterol. 8. heartburn - on tums / malox, adding pepcid. 9. contraception - BTL - PM 330 signed 19 May 2023. 10. AMA - needs hali sono. Scheduled 07/02 Pre- Weight:188.6 BMI: 38.23 Blood type: O+ Rh: positive Antibody: negative CBC:early not done RUB:imm VZV:imm HBsAg: Neg HepC: NR RPR/AB-EIA: NR HIV: NR PAP: 02/13/23 normal GC/CT: negative HSV: Desnies in self or partner Genetic testing: Reviewed 02/13 Flu: given 05/19 FAS: ordered 02/13 reminded to schedule 03/17/23-Currently scheduled 07/02 -- still not done. Antibody screen:Negative 3rd trimester 11.6/33.3 311 3rd trimester HIV GBS: 06/30 PCN allergy. Delivery plan: Needs [facility] PM Methamphetamine abuse Fentanyl abuse History of MRSA infection PSH Previous section x 2 OB History -0-4-2. Previous section x 2. Fentanyl and methamphetamine abuse. Denies alcohol and tobacco currently. Family History Noncontributory Allergies Amoxicillin Medications Bactrim Physical exam: General: Alert, oriented, no acute distress Head: Normal cephalic, 3 cm area of swelling and erythema on right cheek. Small tongue lesion, present for quite some time. Eyes: PERRLA, extraocular motions intact. Respiratory: Normal rate of respiration. No accessory muscle use, normal respiratory effort. Cardiovascular: Regular rate and rhythm Abdomen: Gravid, nontender, nondistended Extremities: Normal range of motion. 2+ pitting edema bilaterally in lower extremities Neuro: Oriented x3. Normal movements Psych: Appropriate mood and affect. Normal judgment and insight SVE: 1.5/60/-3 FHT: 125 beats per baseline, moderate variability, accelerations present, no decelerations. Rowe: Irritable Maternal drug screen positive for amphetamines, methamphetamines, benzodiazepines, cocaine, cannabinoids Plan 37-year-old -0-4-2 at 36 weeks gestation presenting for observation for preeclampsia with severe features versus drug-induced hypertension. 1. Drug abuse in -Last use this morning. Blood pressure elevated, but not severe today. Had 2 clinic visits with severe range blood pressures, but did not come to the hospital. -Discussed start program in [place] and patient desires to transfer there for maternal recovery after delivery. 2. 36 weeks gestation -received 1 dose of betamethasone at 1807 -Category 1 tracing 3. Tongue lesion -MRSA screen positive in mouth. Currently on Bactrim for skin lesion on cheek -Consider acyclovir, although long-lasting lesion 4. Elevated blood pressure: -Likely due to drug abuse. Labs not concerning for preeclampsia - NST Procedure NST Procedure Start Time 16:00 Stop Time 16:30 Meds/Allgy - Home Medications Home Medications: Ambulatory Orders Medication Instructions Recorded Confirmed No Known Home Medications 07/17/22 07/17/22 - Allergies Allergies/Adverse Reactions: Allergies Allergy/AdvReac Type Severity Reaction Status Date / Time amoxicillin AdvReac Intermediate Hives Verified 07/17/22 22:11 Plan for Labor - Plan For Labor I expect patient to be DC'd or transferred within 96 hours.: Yes
[2023-07-03 00:09] LABS: MUDS CUTOFF CONCENTRATIONS CUTOFF CONC BELOW:
[2023-07-03 00:20] LABS: AMPHETAMINE SCREEN,URINE POSITIVE (NEGATIVE); BENZODIAZEPINES SCREEN, URINE POSITIVE (NEGATIVE); COCAINE SCREEN URINE POSITIVE (NEGATIVE); METHAMPHETAMINES SCREEN, URINE POSITIVE (NEGATIVE); OPIATE SCREEN, URINE NEGATIVE (NEGATIVE); THC CANNABINOID SCREEN, URINE POSITIVE (NEGATIVE)
[2023-07-03 00:21] LABS: BARBITURATE SCREEN,UR NEGATIVE (NEGATIVE); METHADONE SCREEN, URINE NEGATIVE (NEGATIVE); OXYCODONE SCREEN, URINE NEGATIVE (NEGATIVE); PROPOXYPHENE SCREEN, URINE NEGATIVE (NEGATIVE); TRICYCLIC ANTIDEPRESSANT,URINE NEGATIVE (NEGATIVE)
[2023-07-03 00:25] LABS: CREATININE,URINE 151.8 mg/dL; PROTEIN/CREATININE RATIO,URINE 0.2 (<=0.2)
[2023-07-03] MEDS ORDERED: BACITRACIN ZINC OINT 1 PACKET TOP SCH (01:00)
[2023-07-03] MEDS ORDERED: NICOTINE 7 MG PATCH TOP SCH (01:30)
[2023-07-03] MEDS ORDERED: ACETAMINOPHEN 500 MG TABLET PO PRN (03:30)
[2023-07-03] MEDS ORDERED: ONDANSETRON ODT 4 MG TABLET TL PRN (05:12)
[2023-07-03] MEDS ORDERED: PRENATAL VITAMIN TABLET PO SCH (07:00)
[2023-07-03] MEDS ORDERED: SULFAMETH/TRIMETH DS 800/160 MG TABLET PO SCH (07:00)
--- NOTE | 2023-07-03 09:55 | Discharge Plan ---
Discharge Plan Problem Reviewed?: Yes Disposition: [facility] DC/Xfer Condition: Good Shower Restrictions: No Driving Restrictions: No No Smoking: If you smoke, Please STOP! Call for help.
--- NOTE | 2023-07-03 10:02 | Ultrasound Report ---
PROCEDURE: Duplex Ext Veins Right INDICATIONS: right leg pain TECHNIQUE: Real-time imaging, as well as color and pulse Doppler interrogation, were performed of the lower extr emity deep veins from the inguinal ligament to the popliteal fossa. Attempted visualization of the ca lf veins was performed. COMPARISON: None. FINDINGS: The deep veins are normally compressible, and free of intraluminal thrombus. Color and pu lse Doppler demonstrate normal phasic intraluminal flow. There is normal augmentation response to di stal compression maneuver. IMPRESSION: No deep venous thrombosis of the visualized lower extremity. Reviewed by: Ghanshyam Hernandez MD on 07/03/2023 10:00 AM [facility] Approved by: Ghanshyam Hernandez MD on 07/03/2023 10:00 AM PST Station ID: [id number]
[2023-07-03 10:44] VITALS: BP 144/86; O2SAT 100
== END 2023-07-03 10:30 | disposition critical access hospital (66) ==
LOC: WFO 23:21 → FBP 23:25 → WFO 23:40 → FBP 23:42 → UNDOADMOB 23:42 → WFO 07-03 01:30 → FBP 07-03 01:30 → UNDODISOB 07-03 10:30
PROVIDERS: ADMIT Obstetrics & Gynecology; ATTEND Obstetrics & Gynecology
DX: O99.891 Other specified diseases and conditions complicating pregnancy (principal); R03.0 Elevated blood-pressure reading, without diagnosis of hypertension; O99.323 Drug use complicating pregnancy, third trimester; F15.10 Other stimulant abuse, uncomplicated; F11.10 Opioid abuse, uncomplicated; O98.513 Other viral diseases complicating pregnancy, third trimester; Z3A.36 36 weeks gestation of pregnancy; B00.2 Herpesviral gingivostomatitis and pharyngotonsillitis; O99.513 Diseases of the respiratory system complicating pregnancy, third trimester; J45.909 Unspecified asthma, uncomplicated; B95.62 Methicillin resistant Staphylococcus aureus infection as the cause of diseases classified elsewhere; Z86.16 Personal history of COVID-19; R12 Heartburn
CPT/HCPCS: 80306; 82570; 84156; 87640; 93971; A9270; G0378; Q0162

== ENCOUNTER 2023-12-24 07:54 | Emergency (ER) | payer MEDICAID ==
--- NOTE | 2023-12-24 08:13 | ED Physician Documentation ---
PD HPI FEVER - Stated complaint Stated Complaint: CHILLS,FEVER,COUGH,BODY PX - History obtained from History obtained from: Patient - Additional information Additional information: 38-year-old woman with history of narcotic addiction on 130 mg of methadone a day through [employer]. She started to get sick on Friday With a flulike illness with fevers, chills, severe body aches and starting yesterday threw up after taking her methadone dose so has not had her methadone for a couple of days which is exacerbated her flulike illness. Denies urinary complaints. Does have a cough and wheezing with history of asthma. 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 - Present Medications Home Medications: Ambulatory Orders Medication Instructions Recorded Confirmed Albuterol 2.5 mg INH Q4H PRN #30 ml 12/24/23 Albuterol Sulf [Ventolin Hfa 1 - 2 puffs INH Q4HR PRN #1 each 12/24/23 Inhaler] Ondansetron Odt [Zofran] 4 mg TL Q6H PRN #10 tablet 12/24/23 - Allergies Allergies/Adverse Reactions: Allergies Allergy/AdvReac Type Severity Reaction Status Date / Time amoxicillin AdvReac Intermediate Hives Verified 12/24/23 08:12 - Social History Does the pt smoke?: No Smoking Status: Never smoker Does the pt drink ETOH?: No Does the pt have substance abuse?: No - Immunizations Immunizations are current?: Yes - POLST Patient has POLST: No PD ED PE NORMAL - Vitals Vital signs reviewed: Yes - General General: Alert and oriented X 3, Other (Nontoxic but miserable appearing) - Neck Neck: Supple, no meningeal sign, No bony TTP - Cardiac Cardiac: RRR, No murmur - Respiratory Respiratory: No respiratory distress, Other (Wheezy throughout without focal findings) - Abdomen Abdomen: Non tender - Derm Derm: No rash - Extremities Extremities: No edema, No calf tenderness / cord - Neuro Neuro: Alert and oriented X 3 Results - Vitals Vitals: Vital Signs - 24 hr 12/24/23 12/24/23 08:07 08:31 Temperature 35.6 C L Heart Rate 84 77 Respiratory 20 18 Rate Blood Pressure 135/89 H O2 Saturation 97 Oxygen O2 Source Room air - Labs Labs: Laboratory Tests 12/24/23 12/24/23 08:17 08:22 Sodium 135 Potassium 3.8 Chloride 101 Carbon Dioxide 27 Anion Gap 7.0 BUN 15 Creatinine 0.9 Estimated GFR (MDRD) 70 L Glucose 109 H Calcium 9.8 Nasal Adenovirus (PCR) NOT DETECTED Nasal B. parapertussis DNA (PCR) NOT DETECTED Nasal Coronavir 229E PCR NOT DETECTED Nasal Coronavir HKU1 PCR NOT DETECTED Nasal Coronavir NL63 PCR NOT DETECTED Nasal Coronavir OC43 PCR DETECTED A Nasal Enterovir/Rhinovir PCR NOT DETECTED Nasal Influenza B PCR NOT DETECTED Nasal Influenza A PCR NOT DETECTED Nasal Parainfluen 1 PCR NOT DETECTED Nasal Parainfluen 2 PCR NOT DETECTED Nasal Parainfluen 3 PCR NOT DETECTED Nasal Parainfluen 4 PCR NOT DETECTED Nasal RSV (PCR) NOT DETECTED Nasal B.pertussis DNA PCR NOT DETECTED Nasal C.pneumoniae (PCR) NOT DETECTED Romain Human Metapneumo PCR NOT DETECTED Nasal M.pneumoniae (PCR) NOT DETECTED Nasal SARS-CoV-2 (PCR) NOT DETECTED PD Medical Decision Making - ED course ED course: 38-year-old woman with history of narcotic dependence has not been able to keep down her methadone due to a viral/flulike illness for the last 2 days and is now in narcotic withdrawal as well. She is wheezy as well with a history of asthma. She was treated in the emergency department with intravenous Dilaudid, dexamethasone, and a nebulizer treatment with symptomatic relief and was able to keep down her usual dose of methadone. Workup in the emergency department demonstrates a normal BMP and a [employer] respiratory panel notable for one of the older coronaviruses, not COVID-19. Departure - Departure Disposition: 01 Home, Self Care Clinical Impression: Viral syndrome Condition: Good Record reviewed to determine appropriate education?: Yes Instructions: ED Viral Syndrome Prescriptions: Albuterol Sulf [Ventolin Hfa Inhaler] 1 - 2 puffs INH Q4HR PRN #1 each PRN Reason: Shortness Of Air/Wheezing Albuterol 2.5 mg INH Q4H PRN #30 ml PRN Reason: Wheezing Ondansetron Odt [Zofran] 4 mg TL Q6H PRN #10 tablet PRN Reason: Nausea / Vomiting Comments: I sent your prescription electronically to the [facility] in [place]. You actually were positive for a coronavirus not COVID-19. [place] viruses have been around for quite some time and are not usually dangerous but do cause of miserable flulike illness. This caused you to be nauseous and you had not been able to keep down your methadone for the last 2 days. After treat with meds here you are able to keep down your usual 130 mg dose and make sure to go to your treatment facility tomorrow for routine dosing otherwise. Wear a mask. Return if worse.
[2023-12-24] MEDS: SODIUM CHLORIDE 0.9% 1,000 ML IV STA (08:26)
[2023-12-24] MEDS: ONDANSETRON 4 MG/2 ML VIAL IVP STA (08:29)
[2023-12-24] MEDS: DEXAMETHASONE 10 MG/ML VIAL IVP STA (08:30)
[2023-12-24] MEDS: HYDROmorphone 1 MG/ML CARPUJECT IVP STA ×2 (08:30→09:51)
[2023-12-24] MEDS: IPRATROPIUM/ALBUTEROL 3 ML NEB INH STA (08:31)
[2023-12-24 08:41] LABS: CALCIUM 9.8 mg/dL (8.5-10.3); CREATININE 0.9 mg/dL (0.6-1.3); POTASSIUM 3.8 mmol/L (3.5-4.5)
[2023-12-24] MEDS: METHADONE 50 MG/5 ML ORAL SYRINGE PO ONE (08:51)
[2023-12-24 09:32] LABS: B. PARAPERTUSSIS- RESP PCR PAN NOT DETECTED; B. PERTUSSIS- RESP PCR PANEL NOT DETECTED; C. PNEUMONIAE- RESP PCR PANEL NOT DETECTED; CORONAVIRUS 229E-RESP PCR NOT DETECTED; CORONAVIRUS HKU1-RESP PCR NOT DETECTED; CORONAVIRUS NL63-RESP PCR NOT DETECTED; CORONAVIRUS OC43-RESP PCR DETECTED; HUMAN METAPNEUMOVIRUS NOT DETECTED; INFLUENZA A- RESP PCR PANEL NOT DETECTED; INFLUENZA B - RESP PCR PANEL NOT DETECTED; M. PNEUMONIAE- RESP PCR PANEL NOT DETECTED; PARAINFLUENZA VIRUS 1 NOT DETECTED; PARAINFLUENZA VIRUS 2 NOT DETECTED; PARAINFLUENZA VIRUS 3 NOT DETECTED; PARAINFLUENZA VIRUS 4 NOT DETECTED; RHINOVIRUS/ENTEROVIRUS NOT DETECTED; RSV- RESP PCR PANEL NOT DETECTED; SARS-CoV-2 -RESP PCR PANEL NOT DETECTED
[2023-12-24] MEDS: KETOROLAC 15 MG/ML VIAL IVP STA (09:51)
[2023-12-24 10:27] VITALS: BP 119/91; O2SAT 95
== END 2023-12-24 10:18 | disposition home or self-care (01) ==
LOC: ED 07:54
DX: B34.9 Viral infection, unspecified (principal); F11.23 Opioid dependence with withdrawal
CPT/HCPCS: 36415; 80048; 87633; 94640; 94664; 96374; 96375; 99283